=== PATIENT | male | born 1950 | race Caucasian/White ===

== ENCOUNTER 2016-11-11 16:56 | Inpatient (IN) | payer MEDICARE, OTHER ==
[2016-11-11] MEDS ORDERED: SODIUM CHLORIDE 0.9% 1,000 ML IV STA (17:35)
[2016-11-11] MEDS ORDERED: SODIUM CHLORIDE 0.9% 500 ML IV STA (17:35)
[2016-11-11 18:18] LABS: Basophils % (A) 0 %; CH 33.1; CHCM 34.7; Eosinophils # (A) 0.1 k/uL (0-0.7); Eosinophils % (A) 1 %; HCT 41.6 % (39.0-53.0); HDW 2.47; HGB 13.9 gm/dL (13.0-17.5); Luc % (Auto) 2; Lymphocytes # (A) 1.2 k/uL (1.0-4.8); Lymphocytes % (A) 22 %; MCH 32.1 pg (25.0-35.0); MCHC 33.5 g/dL (31.0-37.0); Mean Platelet Volume 7.2; Monocytes # (A) 0.4 k/uL (0-1.0); Monocytes % (A) 6 %; Neutrophils # (A) 3.8 k/uL (1.3-7.7); Neutrophils % (A) 68 %; RBC 4.34 m/uL (4.30-5.90); RDW 13.2 % (11.5-15.5); WBC 5.6 k/uL (3.8-10.6); WBC (Perox) 6.05
[2016-11-11 18:21] LABS: MCV 95.8 fL (80.0-100.0)
[2016-11-11 18:23] LABS: INR 1.1 (<1.2); Partial Thromboplastin Time 26.1 sec (22.0-30.0); Prothrombin Time 10.6 sec (9.0-12.0)
[2016-11-11 18:24] LABS: ALT 37 U/L (21-72); AST 26 U/L (17-59); Alkaline Phosphatase 76 U/L (38-126); Anion Gap 9 mmol/L; Blood Urea Nitrogen 22 mg/dL (9-20); Carbon Dioxide 22 mmol/L (22-30); Chloride 110 mmol/L (98-107); Glucose 103 mg/dL (74-99); Non-African American GFR(MDRD) >60 (>60 ml/min/1.73 sqM); Sodium 141 mmol/L (137-145); Total Bilirubin 0.5 mg/dL (0.2-1.3); Total Protein 6.5 g/dL (6.3-8.2)
[2016-11-11 18:40] LABS: Creatine Kinase 220 U/L (55-170)
[2016-11-11 18:53] LABS: Creatine Kinase MB 1.8 ng/mL (0.0-2.4); Troponin I <0.012 ng/mL (0.000-0.034)
--- NOTE | 2016-11-11 20:07 | ED ---
GI Bleed HPI - General Chief complaint: GI Bleed Stated complaint: Blood in Stool Time Seen by Provider: 11/11/16 17:16 Source: patient Mode of arrival: ambulatory Limitations: no limitations - History of Present Illness Initial comments: 66 years old male noticed a small amount of blood in his stool 2 days ago, it became more frequent today he moved his bowels and he noticed a large amount of blood ordiarrhea.Thisisafirst- timeeverhehadnobloodinhisstoolnoabdominalpainnofrequencyurgencydysurianodiarrhea orconstipationexceptforcoupleofloosestools.Heisnotonanybloodthinners.Deniesanyhe adachesnochestpainorshortnessofbreathnoabdominalpainnosymptomsofTIAo rCVA - Related Data Home Medications Medication Instructions Recorded Confirmed Aspirin 81 mg PO DAILY 09/17/15 11/11/16 Beta-Carotene [Beta Carotene] 25,000 unit PO DAILY 09/17/15 11/11/16 Esomeprazole Magnesium [NexIUM] 20 mg PO QAM 09/17/15 11/11/16 Acetaminophen Tab [Tylenol Tab] 500 - 1,000 mg PO Q6HR PRN 11/11/16 11/11/16 guaiFENesin [Mucinex] 600 mg PO Q12H PRN 11/11/16 11/11/16 Allergies Allergy/AdvReac Type Severity Reaction Status Date / Time No Known Allergies Allergy Verified 11/11/16 17:24 Review of Systems ROS Statement: Those systems with pertinent positive or pertinent negative responses have been documented in the HPI. ROS Other: All systems not noted in ROS Statement are negative. Past Medical History Past Medical History: GERD/Reflux Additional Past Medical History / Comment(s): Hernia History of Any Multi-Drug Resistant Organisms: None Reported Past Surgical History: Tonsillectomy Past Anesthesia/Blood Transfusion Reactions: No Reported Reaction Past Psychological History: Depression Smoking Status: Never smoker Past Alcohol Use History: Daily Past Drug Use History: None Reported - Past Family History Mother Family Medical History: Congestive Heart Failure (CHF) Father Family Medical History: Dementia General Exam - General Exam Comments Initial Comments: General: The patient is awake and alert, in no distress, and does not appear acutely ill. Skin: Skin is warm and dry and no rashes or lesions are noted. Eye: Pupils are equal, round and reactive to light, extra-ocular movements are intact; there is normal conjunctiva bilaterally. Ears, nose, mouth and throat: There are moist mucous membranes and no oral lesions. Neck: The neck is supple, there is no tenderness or JVD. Cardiovascular: There is a regular rate and rhythm. No murmur, rub or gallop is appreciated. Respiratory: To auscultation bilateral, no wheezing no rhonchi no distress respiratory calles noticed Gastrointestinal: Soft, non-distended, non-tender abdomen without masses or organomegaly noted. There is no rebound or guarding present. Bowel sounds are unremarkable. Rectal exam did show bright red blood rectal tone was fine there was no hemorrhoids Back: There is no tenderness to palpation in the midline. There is no obvious deformity. Musculoskeletal: Normal ROM, no tenderness, There is no pedal edema. There is no calf tenderness or swelling. No cords were appreciated. Neurological: CN II-XII intact, Cranial nerves III through XII are intact. There are no obvious motor or sensory deficits. Coordination appears grossly intact. Speech is normal. Psychiatric: Cooperative, appropriate mood & affect, normal judgment. Limitations: no limitations Course Vital Signs 11/11/16 11/11/16 11/11/16 17:08 19:06 19:53 Temperature 98.3 F 98.7 F Pulse Rate 124 H 85 100 Respiratory 22 20 18 Rate Blood Pressure 130/91 131/76 131/76 O2 Sat by Pulse 95 97 97 Oximetry - Reevaluation(s) Reevaluation #1: 11/11/16 19:54 Spoke with family doctor as well as Dr. Sheppard he be admitted to ICU. Serial H& H and a Dr. Beltran 11/11/16 20:09 Considering active GI bleed Dr. beltran recommended we admit him to ICU Medical Decision Making - Lab Data Result diagrams: 11/11/16 18:00 11/11/16 18:00 Lab Results 11/11/16 11/11/16 11/11/16 Range/Units 18:00 18:00 18:00 WBC 5.6 (3.8-10.6) k/uL RBC 4.34 (4.30-5.90) m/uL Hgb 13.9 (13.0-17.5) gm/dL Hct 41.6 (39.0-53.0) % MCV 95.8 D (80.0-100.0) fL MCH 32.1 (25.0-35.0) pg MCHC 33.5 (31.0-37.0) g/dL RDW 13.2 (11.5-15.5) % Plt Count 231 (150-450) k/uL Neutrophils % 68 % Lymphocytes % 22 % Monocytes % 6 % Eosinophils % 1 % Basophils % 0 % Neutrophils # 3.8 (1.3-7.7) k/uL Lymphocytes # 1.2 (1.0-4.8) k/uL Monocytes # 0.4 (0-1.0) k/uL Eosinophils # 0.1 (0-0.7) k/uL Basophils # 0.0 (0-0.2) k/uL PT (9.0-12.0) sec INR (<1.2) APTT (22.0-30.0) sec Sodium 141 (137-145) mmol/L Potassium 4.0 (3.5-5.1) mmol/L Chloride 110 H (98-107) mmol/L Carbon Dioxide 22 (22-30) mmol/L Anion Gap 9 mmol/L BUN 22 H (9-20) mg/dL Creatinine 0.91 (0.66-1.25) mg/dL Est GFR (MDRD) Af Amer >60 (>60 ml/min/1.73 sqM) Est GFR (MDRD) Non-Af >60 (>60 ml/min/1.73 sqM) Glucose 103 H (74-99) mg/dL Calcium 9.0 (8.4-10.2) mg/dL Total Bilirubin 0.5 (0.2-1.3) mg/dL AST 26 (17-59) U/L ALT 37 (21-72) U/L Alkaline Phosphatase 76 (38-126) U/L Total Creatine Kinase 220 H (55-170) U/L CK-MB (CK-2) 1.8 (0.0-2.4) ng/mL CK-MB (CK-2) Rel Index 0.8 Troponin I <0.012 (0.000-0.034) ng/mL Total Protein 6.5 (6.3-8.2) g/dL Albumin 3.9 (3.5-5.0) g/dL Stool Occult Blood (Negative) Blood Type Blood Type Recheck Antibody Screen Spec Expiration Date 11/11/16 11/11/16 11/11/16 Range/Units 18:00 18:00 18:00 WBC (3.8-10.6) k/uL RBC (4.30-5.90) m/uL Hgb (13.0-17.5) gm/dL Hct (39.0-53.0) % MCV (80.0-100.0) fL MCH (25.0-35.0) pg MCHC (31.0-37.0) g/dL RDW (11.5-15.5) % Plt Count (150-450) k/uL Neutrophils % % Lymphocytes % % Monocytes % % Eosinophils % % Basophils % % Neutrophils # (1.3-7.7) k/uL Lymphocytes # (1.0-4.8) k/uL Monocytes # (0-1.0) k/uL Eosinophils # (0-0.7) k/uL Basophils # (0-0.2) k/uL PT 10.6 (9.0-12.0) sec INR 1.1 (<1.2) APTT 26.1 (22.0-30.0) sec Sodium (137-145) mmol/L Potassium (3.5-5.1) mmol/L Chloride (98-107) mmol/L Carbon Dioxide (22-30) mmol/L Anion Gap mmol/L BUN (9-20) mg/dL Creatinine (0.66-1.25) mg/dL Est GFR (MDRD) Af Amer (>60 ml/min/1.73 sqM) Est GFR (MDRD) Non-Af (>60 ml/min/1.73 sqM) Glucose (74-99) mg/dL Calcium (8.4-10.2) mg/dL Total Bilirubin (0.2-1.3) mg/dL AST (17-59) U/L ALT (21-72) U/L Alkaline Phosphatase (38-126) U/L Total Creatine Kinase (55-170) U/L CK-MB (CK-2) (0.0-2.4) ng/mL CK-MB (CK-2) Rel Index Troponin I (0.000-0.034) ng/mL Total Protein (6.3-8.2) g/dL Albumin (3.5-5.0) g/dL Stool Occult Blood Positive (Negative) Blood Type O Negative Blood Type Recheck No Antibody Screen NEGATIVE Spec Expiration Date 11/14/2016 - 2300 Disposition Clinical Impression: GI bleed Disposition: ADMITTED IP TO THIS [facility] Condition: Good Referrals: Panfilo Truong MD [Primary Care Provider] - 1-2 days
[2016-11-11] MEDS ORDERED: MORPHINE SULFATE 2 MG/ML SYRINGE IV PRN (20:10)
[2016-11-11] MEDS ORDERED: NALOXONE 0.4 MG/ML 1 ML VIAL IV PRN (20:10)
[2016-11-11] MEDS ORDERED: ACETAMINOPHEN SUPPOSITORY 650 MG SUPP RECTAL PRN (20:10)
[2016-11-11] MEDS ORDERED: guaiFENesin 600 MG TABLET.ER PO PRN (20:23)
[2016-11-11] MEDS ORDERED: PANTOPRAZOLE 40 MG/10 ML VIAL IVP ONE (20:25)
[2016-11-11] MEDS ORDERED: ACETAMINOPHEN TAB 500 MG TAB PO STA (21:01)
[2016-11-11 21:31] LABS: Glucose,Whole Blood 100 mg/dL (75-99)
[2016-11-11 22:43] VITALS: BMI 24.3
[2016-11-12 04:23] LABS: CH 33.2; CHCM 34.4; HCT 38.7 % (39.0-53.0); HDW 2.45; HGB 12.9 gm/dL (13.0-17.5); MCH 32.3 pg (25.0-35.0); MCHC 33.3 g/dL (31.0-37.0); MCV 96.8 fL (80.0-100.0); Mean Platelet Volume 6.8; RDW 13.2 % (11.5-15.5); WBC 6.1 k/uL (3.8-10.6)
[2016-11-12 04:33] LABS: Anion Gap 9 mmol/L; Blood Urea Nitrogen 18 mg/dL (9-20); Calcium 8.8 mg/dL (8.4-10.2); Carbon Dioxide 24 mmol/L (22-30); Chloride 109 mmol/L (98-107); Glucose 100 mg/dL (74-99); Magnesium 1.8 mg/dL (1.6-2.3); Non-African American GFR(MDRD) >60 (>60 ml/min/1.73 sqM); Potassium 3.8 mmol/L (3.5-5.1); Sodium 142 mmol/L (137-145)
[2016-11-12] MEDS ORDERED: Magnesium Replacement Protocol 1 EACH MISC MISCELLANE PRN (05:48)
[2016-11-12] MEDS ORDERED: Potassium Replacement Protocol 1 EACH MISC MISCELLANE PRN (05:48)
[2016-11-12] MEDS: POTASSIUM CHLORIDE ER 20 MEQ TAB.ER PO SCH ×2 (06:40→08:15)
[2016-11-12] MEDS: MAGNESIUM SULFATE-D5W PMX 1 GM in DEXTROSE/WATER 1 100ML.BAG IVPB SCH ×2 (06:40→08:14)
[2016-11-12] MEDS: PANTOPRAZOLE 40 MG TABLET PO SCH (08:17)
[2016-11-12] MEDS ORDERED: BETA CAROTENE 25000 UNIT PO SCH (09:00)
[2016-11-12] MEDS: D5-0.9% NACL WITH KCL 20 MEQ/L 1,000 ML IV SCH ×2 (10:28→18:42)
[2016-11-12 10:47] LABS: CH 31.9; CHCM 34.1; HDW 3.15; HGB 13.1 gm/dL (13.0-17.5); MCH 33.4 pg (25.0-35.0); MCHC 35.5 g/dL (31.0-37.0); MCV 94.1 fL (80.0-100.0); Mean Platelet Volume 7.5; RBC 3.94 m/uL (4.30-5.90); RDW 12.9 % (11.5-15.5); WBC 5.3 k/uL (3.8-10.6)
[2016-11-12] MEDS ORDERED: PEG 3350-NA SULF,BICARB,CL/KCL 4,000 ML BOTTLE PO ONE (13:00)
--- NOTE | 2016-11-12 13:06 | P.CNPUL ---
History of Present Illness Consult date: 11/12/16 Chief complaint: GI bleeding History of present illness: 66 year-old male patient who presented to his primary care physician because of bright red blood per rectum. The patient was having small amount of bloody stool over the past few days. Based on this, the patient presented to his primary care physician. A office sigmoidoscopy was done and the patient was found to have large amount of bright red blood per rectum. The patient was referred to the emergency department. He remained hemodynamically stable. There is no significant drop in his hemoglobin. Did not require any packed RBC transfusion. He has never had a colonoscopy before. No intake of any anticoagulants. He takes baby aspirin. No chronic liver disease. No alcoholism. No peptic ulcer disease. No hematemesis. No abdominal pain or distention. No new onset constipation. No other complaints otherwise. Review of Systems Constitutional: Denies chills, Denies fever Eyes: denies blurred vision, denies bulging eye, denies decreased vision Ears: deny: decreased hearing, ear discharge, earache Ears, nose, mouth and throat: Denies headache, Denies sore throat Cardiovascular: Denies chest pain, Denies shortness of breath Gastrointestinal: Reports BRBPR Genitourinary: Reports as per HPI Musculoskeletal: Denies myalgias Musculoskeletal: absent: ankle pain, ankle stiffness, ankle swelling Integumentary: Denies pruritus, Denies rash Neurological: Denies numbness, Denies weakness Psychiatric: Denies anxiety, Denies depression Past Medical History Past Medical History: GERD/Reflux Additional Past Medical History / Comment(s): Hernia History of Any Multi-Drug Resistant Organisms: None Reported Past Surgical History: Tonsillectomy Past Anesthesia/Blood Transfusion Reactions: No Reported Reaction Smoking Status: Never smoker Additional Past Alcohol Use History / Comment(s): 1 drink every other day Past Drug Use History: None Reported - Past Family History Mother Family Medical History: Congestive Heart Failure (CHF) Father Family Medical History: Dementia Medications and Allergies Home Medications Medication Instructions Recorded Confirmed Type Aspirin 81 mg PO DAILY 09/17/15 11/11/16 History Beta-Carotene [Beta Carotene] 25,000 unit PO DAILY 09/17/15 11/11/16 History Esomeprazole Magnesium [NexIUM] 20 mg PO QAM 09/17/15 11/11/16 History Acetaminophen Tab [Tylenol Tab] 500 - 1,000 mg PO Q6HR PRN 11/11/16 11/11/16 History guaiFENesin [Mucinex] 600 mg PO Q12H PRN 11/11/16 11/11/16 History Allergies Allergy/AdvReac Type Severity Reaction Status Date / Time No Known Allergies Allergy Verified 11/11/16 17:24 Physical Exam Vitals: Vital Signs Temp Pulse Pulse Resp BP BP Pulse Ox 11/12/16 10:00 74 19 127/74 96 11/12/16 09:00 68 12 140/77 96 11/12/16 08:00 97.9 F 74 18 132/72 95 11/12/16 07:00 71 13 120/78 95 11/12/16 06:50 81 19 120/78 93 L 11/12/16 06:40 81 12 120/78 97 11/12/16 06:30 62 14 120/78 94 L 11/12/16 06:20 67 17 120/78 95 11/12/16 06:10 75 15 120/68 94 L 11/12/16 06:00 59 L 11 L 120/68 97 11/12/16 05:50 73 17 120/68 95 11/12/16 05:40 72 16 120/68 94 L 11/12/16 05:30 70 17 120/68 94 L 11/12/16 05:20 62 16 120/68 95 11/12/16 05:10 59 L 15 132/82 94 L 11/12/16 05:00 64 15 132/82 94 L 11/12/16 04:50 65 16 132/82 95 11/12/16 04:40 69 14 132/82 95 11/12/16 04:30 132/82 11/12/16 04:20 77 15 132/82 95 11/12/16 04:10 98.2 F 74 23 105/69 96 11/12/16 04:00 75 17 105/69 11/12/16 03:50 90 60 H 105/69 94 L 11/12/16 03:40 62 15 105/69 94 L 11/12/16 03:30 62 15 105/69 95 11/12/16 03:20 64 17 105/69 94 L 11/12/16 03:10 68 16 104/66 94 L 11/12/16 03:00 69 12 104/66 95 11/12/16 02:50 90 20 104/66 96 11/12/16 02:40 70 17 104/66 92 L 11/12/16 02:30 75 23 104/66 93 L 11/12/16 02:20 74 18 104/66 94 L 11/12/16 02:10 70 16 112/73 93 L 11/12/16 02:00 73 16 112/73 94 L 11/12/16 01:50 65 16 112/73 95 11/12/16 01:40 74 14 112/73 95 11/12/16 01:30 72 17 112/73 94 L 11/12/16 01:20 67 18 112/73 95 11/12/16 01:10 62 15 110/67 95 11/12/16 01:00 64 16 110/67 94 L 11/12/16 00:50 68 11 L 110/67 92 L 11/12/16 00:40 110/67 11/12/16 00:30 81 15 110/67 96 11/12/16 00:20 69 16 110/67 96 11/12/16 00:10 68 16 119/74 94 L 11/12/16 00:00 98.2 F 100 75 20 119/74 97 11/11/16 23:50 64 15 119/74 96 11/11/16 23:40 71 15 119/74 96 11/11/16 23:30 65 15 119/74 96 11/11/16 23:20 65 16 119/74 94 L 11/11/16 23:12 68 15 119/74 94 L 11/11/16 23:10 70 16 119/74 94 L 11/11/16 23:00 88 16 119/74 94 L 11/11/16 22:50 78 11 L 119/74 95 11/11/16 22:40 86 24 119/74 94 L 11/11/16 22:30 78 17 119/74 95 11/11/16 22:21 80 129/78 96 11/11/16 22:15 75 16 11/11/16 22:10 77 17 129/78 94 L 11/11/16 22:00 81 11 L 145/80 95 11/11/16 21:54 98.0 F 75 14 119/74 95 11/11/16 21:50 76 11 L 145/80 93 L 11/11/16 21:40 82 10 L 145/80 95 11/11/16 21:30 100.1 F H 90 18 138/86 95 11/11/16 21:00 100.1 F H 90 18 138/86 95 11/11/16 19:53 100 18 131/76 97 11/11/16 19:06 98.7 F 85 20 131/76 97 11/11/16 17:08 98.3 F 124 H 22 130/91 95 Intake and Output 11/11/16 11/12/16 11/12/16 22:59 06:59 14:59 Intake Total 100 800 500 Output Total 103 Balance 100 697 500 Intake: IV 100 800 500 Sodium Chloride 0.9% 1, 100 800 500 000 ml @ 100 mls/hr IV . Q10H STA Rx#:[id number] Output: Urine 100 Stool 3 Other: Voiding Method Toilet Toilet Toilet # Voids 1 1 # Bowel Movements 1 Weight 93.3 kg 93.3 kg The patient appeared well nourished and normally developed. Vital signs as documented. Head exam is unremarkable. No scleral icterus or corneal arcus noted. Neck is without jugular venous distension, thyromegaly, or carotid bruits. Carotid upstrokes are brisk bilaterally. Lungs are clear to auscultation and percussion. Cardiac exam reveals the PMI to be normally sized and situated. Rhythm is regular. First and second heart sounds normal. No murmurs, rubs or gallops. Abdominal exam reveals normal bowel sounds, no masses , no organomegaly and no aortic enlargement. Extremities are nonedematous and both femoral and pedal pulses are normal. Results - Laboratory Findings CBC and BMP: 11/12/16 10:31 11/12/16 04:12 PT/INR, D-dimer PT 10.6 sec (9.0-12.0) 11/11/16 18:00 INR 1.1 (<1.2) 11/11/16 18:00 Abnormal lab findings: Abnormal Labs 11/11/16 11/11/16 11/11/16 18:00 18:00 21:30 RBC Hgb Hct Chloride 110 H BUN 22 H Glucose 103 H POC Glucose (mg/dL) 100 H Total Creatine Kinase 220 H 11/12/16 11/12/16 11/12/16 04:12 04:12 10:31 RBC 4.00 L 3.94 L Hgb 12.9 L Hct 38.7 L 37.0 L Chloride 109 H BUN Glucose 100 H POC Glucose (mg/dL) Total Creatine Kinase Assessment and Plan Plan: Assessment 1 bright red blood per rectum, rule out lower GI bleeding. Hemodynamically stable. No significant drop in hemoglobin. Plan Allow clear liquid diet. Monitor hemoglobin. TO be evaluated by Dr. Sheppard. Colonoscopy hopefully within the next 24-48 hours. Hemodynamically stable. Hemoglobin is stable. The patient can be transferred to medical floorContinue IV fluids. The patient is on D5 normal saline at the rate of 40 mL an hour. IV Protonix. We'll follow.
--- NOTE | 2016-11-12 13:44 | HP ---
CHIEF COMPLAINT: GI bleeding. This is a 66-year-old male who came to my office today with acute GI bleed. He said for 2 days had a little bid of blood. This morning he woke up and had a fair amount of rectal bleeding with a little bit of loose stool. He was seen in the office and evaluated. His vital signs were quite stable except for rapid heart beat of 100 and appeared pale. There was a period of time that I did a rigid sigmoid in the office and he had profuse bleeding from the rectum with large clots. At that time, he was sent directly to the Emergency Room for acute evaluation for CBC. In the meantime, I called Dr. Sheppard on the phone. He was notified of the patient to be admitted and he has been consulted and set up for evaluation of his rectal bleed via colonoscopy in the morning. At this period of time, he has a past medical history of no known allergies. His medications have been: 1. 81 mg of aspirin at home. 2. Beta Carotene 25,000 units daily. 3. Nexium 20 mg a day. 4. Tylenol 500 mg every 6 hours for arthritis. 5. Mucinex for productive cough. His family history is that of mother with congestive heart failure, father had progressive dementia. His past medical history is that of GERD, reflux. His past surgical history is hernia repair and he has been in the hospital, status post infection in the past. His past surgical history is that of tonsillectomy. He has not had any blood products. He also has had a history of depression but has not been on medication for a long period of time. His social history is he drinks alcohol on a daily basis. He drinks beer. His illicit drug use is that of marijuana. His smoking status is that he has never been a smoker. He also lives with his and he is retired. REVIEW OF SYSTEMS: CARDIOPULMONARY: No shortness of breath, chest pain, orthopnea or paroxysmal nocturnal dyspnea. RESPIRATORY: He has occasional dry cough. He has had no history of pneumonia. History of chronic bronchitis. GI: He has had melena and some hematochezia today and over the last 2 days, much more today. No abdominal pain with this, no constipation, no diarrhea. He has not been on any antibiotics. : He has had a fair amount of urination over the last 24 to 48 hours but nothing unusual. He has no problems with his prostate by history. NEUROMUSCULAR: He has some degenerative disc disease in the lower back. He occasionally takes a Motrin and Aleve. He used to take glucosamine at one time but talked to be me about it several years ago. I told him to stop due to the possibility of progressive kidney disease. SKIN/INTEGUMENT: He has had no problems with his skin. ENDOCRINE: He has never had endocrine problem. PSYCHIATRIC: He has had some evidence of depression but nothing severe. No anxiety. He had a progressive history in his family of dementia. LAB WORK: His white count is 5.6, his hemoglobin is 13.9 upon admission and his platelet count 233,000. PT and INR were within normal limits. Sodium was 144, potassium chloride 110, creatinine of 0.9 with a BUN of 22, glucose is 103. Liver function tests were normal. CPK was done along with troponin, positive stool. PHYSICAL EXAMINATION: Alert, white male that does appear pale. His temperature at this time is 98. His heart rate is 100 and respiratory rate is 18. Blood pressure at this time is 140/80, O2 sat is 93 on room air. EYES: Pupils are equal, round and reactive to light and accommodation, conjunctival is pale. The rest of the ENT just shows a dry mouth. Neck is supple, midline trachea, no carotid bruits. CHEST: Essentially clear to auscultation. HEART: Sinus rhythm, negative S3, negative S4, S2 split. ABDOMEN: Soft, nontender, no organomegaly. No probable masses, he is thin. 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 The bleeding did stop before patient was transferred to the hospital from my office. SKIN: Changes of stasis dermatitis in the lower legs with palpable lower extremity process. NEUROLOGICAL: When he stood up, he was dizzy, was able to walk without assistance. Cranial nerve 2 through 12 are grossly intact. He has good arm strength bilaterally with deep tendon reflexes +2 bilateral and equal upper and lower extremities. EKG was completed while first admitted to the hospital. Showed some sinus tachycardia and he has a left vesicular block; otherwise, within normal limits. ASSESSMENT: 1. Acute gastrointestinal bleed of questionable etiology, probable anemia. 2. Vertigo. 3. Depression which is now stable. PLAN: Patient has had multiple colonoscopies, many of which he has canceled and has not followed through accordingly. He is in the hospital today. I did call Dr. Sheppard and talked to him personally about the case. He was doing surgeries over at [facility] and he was called. At this time, through the ER, he was admitted to ICU with acute 4 hour hemoglobins and stay close and intact for his blood loss. The plan is to do a colonoscopy in the morning, intensive care physician is mandatory in ICU, Dr. Navas was consulted. No need for immediate consult. Urgent consult was put in. At this point, he is stable. He will be watched through the night. His prognosis is guarded. KENY
[2016-11-12 13:49] LABS: CH 33.1; CHCM 34.1; HCT 41.4 % (39.0-53.0); HDW 2.43; HGB 13.6 gm/dL (13.0-17.5); MCH 32.1 pg (25.0-35.0); MCV 97.4 fL (80.0-100.0); RBC 4.25 m/uL (4.30-5.90); RDW 13.2 % (11.5-15.5); WBC 6.2 k/uL (3.8-10.6)
[2016-11-12 17:31] LABS: CH 32.9; CHCM 33.5; HCT 39.3 % (39.0-53.0); HDW 2.45; MCH 32.5 pg (25.0-35.0); MCV 98.6 fL (80.0-100.0); Mean Platelet Volume 7.1; RBC 3.99 m/uL (4.30-5.90); RDW 13.4 % (11.5-15.5); WBC 6.6 k/uL (3.8-10.6)
--- NOTE | 2016-11-12 21:07 | PN ---
DATE OF SERVICE: 11/12/2016 [age]-old white male came to my office after 2 days of rectal bleeding. It was minimal, and then it progressively worsened. While he was in the office, his rectosigmoid exam was completed which showed dark red blood and copious clot formation. The patient was then sent and admitted to the hospital via the emergency room. He has had no past medical GI history, as per his history and physical. His medications are: 1. Aspirin 81 daily. 2. Beta carotene 25,000 units daily. 3. Nexium 20 mg daily. 4. Tylenol 500 mg every 6 hours p.r.n. arthritis pain. 5. Mucinex 600 every 12 hours for non-specific cough. HE HAS NO KNOWN ALLERGIES. His past medical history is just GERD. His surgical history includes hernia repair and tonsillectomy. PSYCHOLOGICAL HISTORY: He has had some depression in the past. SOCIAL HISTORY: Non-smoker, but he has smoked marijuana. Daily use of alcohol but no other illicit drugs. FAMILY HISTORY: Mother with congestive heart failure. Father with progressive dementia. REVIEW OF SYSTEMS: CARDIOPULMONARY: No shortness of breath. No chest pain or orthopnea. No paroxysmal nocturnal dyspnea. GI: He has melena and some hematochezia. No emesis. No nausea. No vomiting. MUSCULOSKELETAL: Just arthritis throughout the knees and in his hands. PHYSICAL EXAMINATION: This morning he is alert and oriented to person, place and thing. He still has had some rectal bleeding through the night. Blood pressure 140/77, hear rate now in the 70s, respiratory rate 16. Temperature is 97.9. EYES: Pupils are equal, round and reactive to light and accommodation but he still appears pale. ENT is within normal limits. Neck is supple with a midline trachea. CHEST: Essentially clear to auscultation. HEART: Sinus rhythm with no murmur. No S3. Negative S4. ABDOMEN: Soft, non-tender. No palpable masses. No organomegaly. LOWER EXTREMITIES: Good palpable pulses. Arthritis in the knee is visible. Some stasis dermatitis changes in the lower legs. Range of motion of the hips within normal limits. LUMBAR SPINE: Range of motion appears to be within normal limits. There is slight kyphosis. ENDOCRINE: Not addressed. PSYCHIATRIC: No depression. Minimal amount of anxiety. LAB THIS MORNING: Hemoglobin 12.9, WBC 6.1, platelets still 220,000. Chem-17 is within normal limits. ASSESSMENT: 1. Acute gastrointestinal bleed. 2. History of some osteoarthritis. 3. Depression, which has been stable. 4. Gastroesophageal reflux. PLAN AT THIS TIME: Dr. Sheppard has been consulted. Will wait for his lead. He is in ICU and time spent with him was less than 35 minutes. MTDD
[2016-11-12 22:35] LABS: CH 32.3; CHCM 33.8; HCT 36.5 % (39.0-53.0); HDW 2.49; HGB 12.5 gm/dL (13.0-17.5); MCHC 34.4 g/dL (31.0-37.0); MCV 95.8 fL (80.0-100.0); Mean Platelet Volume 6.3; RDW 12.6 % (11.5-15.5); WBC 5.5 k/uL (3.8-10.6)
--- NOTE | 2016-11-12 22:41 | P.GSCN ---
History of Present Illness Consult date: 11/12/16 Reason for Consult: Rectal bleeding History of present illness: Patient came to the hospital with bright red blood per rectum. Numerous episodes. Bleeding has slowed down. No history of similar events. No prior upper or lower endoscopy. Denies abdominal pain. No melena. No syncopal episodes. Hemoglobin has been stable. Review of Systems The patient denies any acute changes in his vision or hearing, no dysphagia or odynophagia, no chest pain or shortness of breath, no dysuria or hematuria, no headache, no runny nose, no melena, no unexplained weight loss Past Medical History Past Medical History: GERD/Reflux Additional Past Medical History / Comment(s): Hernia History of Any Multi-Drug Resistant Organisms: None Reported Past Surgical History: Tonsillectomy Past Anesthesia/Blood Transfusion Reactions: No Reported Reaction Smoking Status: Never smoker Additional Past Alcohol Use History / Comment(s): 1 drink every other day Past Drug Use History: None Reported - Past Family History Mother Family Medical History: Congestive Heart Failure (CHF) Father Family Medical History: Dementia Medications and Allergies Home Medications Medication Instructions Recorded Confirmed Type Aspirin 81 mg PO DAILY 09/17/15 11/11/16 History Beta-Carotene [Beta Carotene] 25,000 unit PO DAILY 09/17/15 11/11/16 History Esomeprazole Magnesium [NexIUM] 20 mg PO QAM 09/17/15 11/11/16 History Acetaminophen Tab [Tylenol Tab] 500 - 1,000 mg PO Q6HR PRN 11/11/16 11/11/16 History guaiFENesin [Mucinex] 600 mg PO Q12H PRN 11/11/16 11/11/16 History Allergies Allergy/AdvReac Type Severity Reaction Status Date / Time No Known Allergies Allergy Verified 11/11/16 17:24 Surgical - Exam Vital Signs Temp Pulse Resp BP Pulse Ox 98.3 F 124 H 22 130/91 95 11/11/16 17:08 11/11/16 17:08 11/11/16 17:08 11/11/16 17:08 11/11/16 17:08 Physical exam: General: Well-developed, well-nourished HEENT: Normocephalic, sclerae nonicteric Abdomen: Nontender, nondistended Extremities: No edema Neuro: Alert and oriented Results - Labs 11/12/16 17:21 11/12/16 04:12 Abnormal Lab Results - Last 24 Hours (Table) 11/12/16 11/12/16 11/12/16 Range/Units 04:12 04:12 10:31 RBC 4.00 L 3.94 L (4.30-5.90) m/uL Hgb 12.9 L (13.0-17.5) gm/dL Hct 38.7 L 37.0 L (39.0-53.0) % Chloride 109 H (98-107) mmol/L Glucose 100 H (74-99) mg/dL 11/12/16 11/12/16 Range/Units 13:30 17:21 RBC 4.25 L 3.99 L (4.30-5.90) m/uL Hgb (13.0-17.5) gm/dL Hct (39.0-53.0) % Chloride (98-107) mmol/L Glucose (74-99) mg/dL Diabetes panel 11/12/16 Range/Units 04:12 Sodium 142 (137-145) mmol/L Potassium 3.8 (3.5-5.1) mmol/L Chloride 109 H (98-107) mmol/L Carbon Dioxide 24 (22-30) mmol/L BUN 18 (9-20) mg/dL Creatinine 0.90 (0.66-1.25) mg/dL Glucose 100 H (74-99) mg/dL Calcium 8.8 (8.4-10.2) mg/dL Calcium panel 11/12/16 Range/Units 04:12 Calcium 8.8 (8.4-10.2) mg/dL Phosphorus 3.0 (2.5-4.5) mg/dL Pituitary panel 11/12/16 Range/Units 04:12 Sodium 142 (137-145) mmol/L Potassium 3.8 (3.5-5.1) mmol/L Chloride 109 H (98-107) mmol/L Carbon Dioxide 24 (22-30) mmol/L BUN 18 (9-20) mg/dL Creatinine 0.90 (0.66-1.25) mg/dL Glucose 100 H (74-99) mg/dL Calcium 8.8 (8.4-10.2) mg/dL Adrenal panel 11/12/16 Range/Units 04:12 Sodium 142 (137-145) mmol/L Potassium 3.8 (3.5-5.1) mmol/L Chloride 109 H (98-107) mmol/L Carbon Dioxide 24 (22-30) mmol/L BUN 18 (9-20) mg/dL Creatinine 0.90 (0.66-1.25) mg/dL Glucose 100 H (74-99) mg/dL Calcium 8.8 (8.4-10.2) mg/dL Assessment and Plan (1) GI bleed Narrative/Plan: We'll proceed with upper and lower endoscopy tomorrow. Risks of bleeding and perforation discussed. Status: Acute
[2016-11-13 04:30] LABS: CHCM 34.3; HCT 33.5 % (39.0-53.0); HDW 2.45; HGB 11.1 gm/dL (13.0-17.5); MCHC 33.1 g/dL (31.0-37.0); MCV 96.6 fL (80.0-100.0); RBC 3.47 m/uL (4.30-5.90); RDW 13.1 % (11.5-15.5); WBC 4.8 k/uL (3.8-10.6)
[2016-11-13 04:42] LABS: Anion Gap 5 mmol/L; Blood Urea Nitrogen 9 mg/dL (9-20); Calcium 8.1 mg/dL (8.4-10.2); Carbon Dioxide 26 mmol/L (22-30); Chloride 111 mmol/L (98-107); Glucose 126 mg/dL (74-99); Magnesium 2.1 mg/dL (1.6-2.3); Non-African American GFR(MDRD) >60 (>60 ml/min/1.73 sqM); Potassium 3.8 mmol/L (3.5-5.1); Sodium 142 mmol/L (137-145)
[2016-11-13] MEDS ORDERED: Potassium Replacement Protocol 1 EACH MISC MISCELLANE PRN (07:00)
[2016-11-13] MEDS: D5-0.9% NACL WITH KCL 20 MEQ/L 1,000 ML IV SCH ×4 (07:23→22:17)
[2016-11-13] MEDS: PANTOPRAZOLE 40 MG TABLET PO SCH (07:25)
[2016-11-13] MEDS: POTASSIUM CHLORIDE 10 MEQ, LIDOCAINE 2% INJ 10 MG in SODIUM CHLORIDE 0.9% 100 ML IV SCH ×2 (07:37→08:45)
[2016-11-13 10:41] LABS: CH 32.1; CHCM 33.9; HCT 37.1 % (39.0-53.0); HDW 2.51; HGB 12.7 gm/dL (13.0-17.5); MCH 32.6 pg (25.0-35.0); MCHC 34.3 g/dL (31.0-37.0); Mean Platelet Volume 6.5; RBC 3.91 m/uL (4.30-5.90); RDW 12.7 % (11.5-15.5); WBC 5.2 k/uL (3.8-10.6)
--- NOTE | 2016-11-13 13:08 | PN ---
DATE OF SERVICE: 11/13/2016 A 66-year-old white male who presented to my office with severe rectal bleeding , his sigmoidoscope rigid completed greater than 10 cm showed profuse blood and clots, was placed in the hospital accordingly and put on projective protocol with hemoglobins every 6 hours. Patient feels a little bit weaker today, has had some rectal bleeding. He is set up for EGD and colonoscopy today with Dr. Sheppard. He has a past medical history of GE reflux, some depression, which has been stable, GERD. FAMILY HISTORY: Mother with congestive heart failure, father had progressive dementia. His medications at this time was 81 mg of aspirin, he was on beta carotene 25, 000 units daily, Nexium 20 daily, Tylenol 500 daily. He uses Mucinex p.r.n. At this point today, in hospital he is on a magnesium and potassium protocol and his potassium is 3.8, magnesium is up to 2.1. Today his hemoglobin is down to 11.1, initially it was at 13.1. REVIEW OF SYSTEMS: CARDIOPULMONARY: No shortness of breath, no chest pain. He has had some cough. He has had some GE reflux, less than 2 standard and he had some rectal bleeding , it has been more bright red. URINARY: Has been normal. NEUROMUSCULAR: He just have pain in his knees from his regular arthritis and in his hands. Today, his vital signs show a blood pressure of 109/67, heart rate is strong and in the 80s, temperature 97.8. EYES: Pupils are equal, round and react to light and accommodation. ENT showed tympanic membranes and appear to be negative. Neck is supple with midline trachea. CHEST: Essentially clear to auscultation. HEART: Sinus rhythm with no murmur. ABDOMEN: Soft, nontender, no organomegaly, no masses. LOWER EXTREMITY: Good palpable lower extremity pulses, arthritis of the knees and the hands are seen. ASSESSMENT: 1. Acute gastrointestinal bleed, history of gastroesophageal reflux disease. PLAN: Continue to follow hemoglobins carefully every [address] Sheppard to do an EGD and colonoscopy today. His prognosis is guarded. Please refer to my orders. MTDD
--- NOTE | 2016-11-13 15:06 | P.PN ---
Subjective 66 year-old male patient who presented to his primary care physician because of bright red blood per rectum. The patient was having small amount of bloody stool over the past few days. Based on this, the patient presented to his primary care physician. A office sigmoidoscopy was done and the patient was found to have large amount of bright red blood per rectum. The patient was referred to the emergency department. He remained hemodynamically stable. There is no significant drop in his hemoglobin. Did not require any packed RBC transfusion. He has never had a colonoscopy before. No intake of any anticoagulants. He takes baby aspirin. No chronic liver disease. No alcoholism. No peptic ulcer disease. No hematemesis. No abdominal pain or distention. No new onset constipation. No other complaints otherwise. On 11/13/2016 the patient is still awaiting colonoscopy and EGD. This will be done today. He is nothing by mouth. PREP was already done. Hemoglobin is stable. No further episodes of bleeding since yesterday. Hemodynamically stable. Has no specific complaints. He would likely leave the ICU after the colonoscopy and EGD. Objective - Vital Signs Vital signs: Vital Signs Temp 98.8 F 11/13/16 07:33 Pulse 71 11/13/16 00:00 Resp 14 11/13/16 07:33 BP 121/76 11/13/16 07:33 Pulse Ox 94 L 11/13/16 07:33 Intake & Output 11/12/16 11/13/16 11/13/16 18:59 06:59 18:59 Intake Total 1050 1600 1200 Output Total 2 Balance 1050 1598 1200 Intake: IV 500 400 Sodium Chloride 0.9% 1, 500 400 000 ml @ 100 mls/hr IV . Q10H STA Rx#:[id number] Intake, IV Titration 550 1200 1200 Amount D5-0.9% NaCl with KCl 20 450 1200 1000 Meq/l 1,000 ml @ 150 mls/ hr IV .Q6H40M DARYN Rx#: [id number] Magnesium Sulfate-D5w Pmx 100 1 gm In Dextrose/Water 1 100ml.bag @ 100 mls/hr IVPB Q1H DARYN Rx#: [id number] Potassium Chloride 10 meq 200 Lidocaine 2% Inj 10 mg In Sodium Chloride 0.9% 100 ml @ 100 mls/hr IV Q1HR DARYN Rx#:[id number] Output: Stool 2 Other: Voiding Method Toilet Toilet Toilet # Voids 3 8 3 # Bowel Movements 4 8 2 - Exam The patient appeared well nourished and normally developed. Vital signs as documented. Head exam is unremarkable. No scleral icterus or corneal arcus noted. Neck is without jugular venous distension, thyromegaly, or carotid bruits. Carotid upstrokes are brisk bilaterally. Lungs are clear to auscultation and percussion. Cardiac exam reveals the PMI to be normally sized and situated. Rhythm is regular. First and second heart sounds normal. No murmurs, rubs or gallops. Abdominal exam reveals normal bowel sounds, no masses , no organomegaly and no aortic enlargement. Extremities are nonedematous and both femoral and pedal pulses are normal. - Labs CBC & Chem 7: 11/13/16 10:34 11/13/16 04:20 Labs: Abnormal Lab Results - Last 24 Hours (Table) 11/12/16 11/12/16 11/13/16 Range/Units 17:21 22:25 04:20 RBC 3.99 L 3.80 L 3.47 L (4.30-5.90) m/uL Hgb 12.5 L 11.1 L (13.0-17.5) gm/dL Hct 36.5 L 33.5 L (39.0-53.0) % Chloride (98-107) mmol/L Glucose (74-99) mg/dL Calcium (8.4-10.2) mg/dL 11/13/16 11/13/16 Range/Units 04:20 10:34 RBC 3.91 L (4.30-5.90) m/uL Hgb 12.7 L (13.0-17.5) gm/dL Hct 37.1 L (39.0-53.0) % Chloride 111 H (98-107) mmol/L Glucose 126 H (74-99) mg/dL Calcium 8.1 L (8.4-10.2) mg/dL Assessment and Plan Plan: Assessment 1 bright red blood per rectum, rule out lower GI bleeding. Hemodynamically stable. No significant drop in hemoglobin. The patient has undergone his bowel prep and he is awaiting his colonoscopy and EGD to be done this afternoon. His most recent hemoglobin is at 12.7. Plan EGD and colonoscopy today. The patient can be transferred to medical floor if the results are essentially benign.
[2016-11-13] MEDS ORDERED: SODIUM CHLORIDE 0.9% 1,000 ML IV ONE (15:12)
[2016-11-13] MEDS ORDERED: PROPOFOL 10 MG/ML 20 ML VIAL IV ONE (15:14)
[2016-11-13] MEDS ORDERED: LIDOCAINE 1% INJ 10MG/ML (20 ML MDV) ONE (15:14)
[2016-11-13 15:15] LABS: CH 32.9; CHCM 33.6; HCT 39.6 % (39.0-53.0); HDW 2.46; HGB 12.9 gm/dL (13.0-17.5); MCHC 32.6 g/dL (31.0-37.0); MCV 98.1 fL (80.0-100.0); Mean Platelet Volume 7.4; RBC 4.03 m/uL (4.30-5.90); RDW 13.4 % (11.5-15.5); WBC 6.4 k/uL (3.8-10.6)
--- NOTE | 2016-11-13 15:57 | P.PCN ---
Date of Procedure: 11/13/16 Preoperative Diagnosis: Postoperative Diagnosis: Procedure(s) Performed: PREOPERATIVE DIAGNOSIS: GI bleeding POSTOPERATIVE DIAGNOSIS: Gastritis, small hiatal hernia, mild distal esophagitis , diverticulosis PROCEDURE: 1. EGD with biopsy 2. Colonoscopy ANESTHESIA: MAC SURGEON: Gerald Sheppard M.D. SPECIMENS: Antrum ENDOSCOPIC PROCEDURE: The patient was on the endoscopy table in the left decubitus position. The Olympus gastroscope was inserted into the oropharynx and passed under direct visualization to the region of the third portion of the duodenum. From that point the scope was slowly withdrawn inspecting all surfaces carefully. There were no neoplastic inflammatory or polypoid lesions throughout the duodenum. The pylorus was widely patent. The stomach was carefully inspected. There was mild gastritis present. A biopsy of the antrum took place to rule out H. pylori. Retroflexion revealed a small sliding hiatal hernia. The esophagus was then carefully examined. There was mild inflammatory changes right at the GE junction. The remainder of the esophagus appear normal. The patient was kept on the endoscopy table in the left decubitus position. The Olympus colonoscope was inserted into the anus and passed under direct visualization to the base of the cecum. The appendiceal orifice was visualized. From that point the scope was slowly withdrawn inspecting all surfaces carefully. There were no neoplastic inflammatory or polypoid lesions throughout the cecum, ascending, transverse, descending, sigmoid and rectum. There was diverticulosis seen scattered throughout the colon. It was evidence of some old blood present in the left colon from about 20-50 cm. No active bleeding was identified. There was bile proximally in the colon. I do suspect the likely source of bleeding is in the descending and sigmoid colon. Digital rectal examination was normal. The patient was taken to the recovery room in stable condition per anesthesia guidelines. RECOMMENDATIONS: Resume diet. Repeat CBC tomorrow. Possible discharge tomorrow. If the patient has evidence of rebleeding would consider left colectomy. Implants: Indications for Procedure: Operative Findings: Description of Procedure:
[2016-11-14] MEDS: D5-0.9% NACL WITH KCL 20 MEQ/L 1,000 ML IV SCH ×3 (06:59→18:00)
[2016-11-14 07:11] LABS: CH 32.9; CHCM 34.1; HCT 33.5 % (39.0-53.0); HDW 2.47; HGB 11.6 gm/dL (13.0-17.5); MCH 33.4 pg (25.0-35.0); MCHC 34.5 g/dL (31.0-37.0); MCV 96.8 fL (80.0-100.0); Mean Platelet Volume 7.3; RBC 3.46 m/uL (4.30-5.90); WBC 5.3 k/uL (3.8-10.6)
[2016-11-14 07:35] LABS: Anion Gap 7 mmol/L; Blood Urea Nitrogen 6 mg/dL (9-20); Calcium 8.6 mg/dL (8.4-10.2); Carbon Dioxide 24 mmol/L (22-30); Chloride 111 mmol/L (98-107); Glucose 113 mg/dL (74-99); Non-African American GFR(MDRD) >60 (>60 ml/min/1.73 sqM); Potassium 4.2 mmol/L (3.5-5.1); Sodium 142 mmol/L (137-145)
[2016-11-14] MEDS: PANTOPRAZOLE 40 MG TABLET PO SCH (08:04)
--- NOTE | 2016-11-14 18:06 | P.PN ---
Subjective Principal diagnosis: GI bleed Patient continued to have small volume bloody stools. Since his colonoscopy yesterday he believes that he had 4 stools each time having a small approximately 1 tablespoon worth of blood within it. His hemoglobin is stable. He is otherwise asymptomatic. His stools are softer now. No pain. Hemoglobin 11.7. Objective - Vital Signs Vital signs: Vital Signs Temp 98.1 F 11/14/16 15:00 Pulse 74 11/14/16 15:00 Resp 16 11/14/16 15:00 BP 133/73 11/14/16 15:00 Pulse Ox 96 11/14/16 15:00 Intake & Output 11/13/16 11/14/16 11/14/16 18:59 06:59 18:59 Intake Total 2300 2590 Balance 2300 2590 Weight 93.3 kg Intake: IV 500 Intake, IV Titration 1200 1200 Amount D5-0.9% NaCl with KCl 20 1000 1200 Meq/l 1,000 ml @ 150 mls/ hr IV .Q6H40M DARYN Rx#: [id number] Potassium Chloride 10 meq 200 Lidocaine 2% Inj 10 mg In Sodium Chloride 0.9% 100 ml @ 100 mls/hr IV Q1HR DARYN Rx#:[id number] Oral 600 1390 Other: Voiding Method Toilet Toilet Toilet # Voids 3 3 3 # Bowel Movements 2 3 - Exam Abdomen: Soft, nontender, nondistended - Labs CBC & Chem 7: 11/14/16 06:55 11/14/16 06:53 Labs: Abnormal Lab Results - Last 24 Hours (Table) 11/14/16 11/14/16 Range/Units 06:53 06:55 RBC 3.46 L (4.30-5.90) m/uL Hgb 11.6 L (13.0-17.5) gm/dL Hct 33.5 L (39.0-53.0) % Chloride 111 H (98-107) mmol/L BUN 6 L (9-20) mg/dL Glucose 113 H (74-99) mg/dL Assessment and Plan (1) GI bleed Narrative/Plan: Patient with admission for lower GI bleed. Etiology appears most likely based on colonoscopy to be a left-sided diverticular bleed. No active bleeding was seen at the time of endoscopy. We discussed the options of tagged RBC scan if his bleeding persists or increases. We'll reserve surgical resection for persistent bleeding. Status: Acute
[2016-11-15] MEDS: D5-0.9% NACL WITH KCL 20 MEQ/L 1,000 ML IV SCH ×2 (07:18→07:19)
--- NOTE | 2016-11-15 07:39 | PN ---
The patient feels good today. No abdominal pain. He just got down going to the restroom and had a large amount of clotted blood. At this time, his vital signs ( ) but he is feeling quite well. Hemoglobin today is 11.6. WBC is 5.3. He was initially 13 on admission. He denies any shortness of breath, chest pain, orthopnea or PND. His medications at this time include that of Magnesium and potassium replacement , morphine sulfate prn for pain. He is on Protonix 40 mg a.c. breakfast. IV fluids. Tylenol. Review of systems: Cardiopulmonary: No shortness of breath. No chest pain. No orthopnea. No paroxysmal nocturnal dyspnea. GI: No hematemesis. He did have some melena, and also some clotted red blood in the left colon. Abdomen soft, no organomegaly. has been normal. Normal urination multiple times last night and this morning. Neuromuscular: Good strength in his arms and his legs. He has arthritis pain that he normally has. SKIN: He has skin changes in his lower legs. Family history was reviewed, unchanged. Other than he said today that his father did have diverticulitis after checking back in with him. Blood pressure today 135/79. Heart rate is in the 70s. Temperature 97.4. Respiratory rate is 17. Eyes: PERRLA. ENT shows tympanic membranes and pharynx to be negative. Neck is supple with midline trachea. Chest is essentially clear to auscultation. Heart is sinus rhythm. Abdomen is soft. Nontender with no organomegaly. Lower extremities he has arthritis throughout his knees. Obviously evidence of arthritis in his hands. ASSESSMENT: 1. Acute gastrointestinal bleed, probably secondary to from diverticulitis per Dr. Sheppard. Please refer to his EGD and colonoscopy. 2. History of generalized arthritis. PLAN: Because of the clotted blood today, we will follow him another day due to [place] location [place]. I will see him in the morning. I will talk with Dr. Sheppard about the results. The options are continuing to bleed will be diverticulitis surgery. If not, we might be able to control this accordingly. [facility]
[2016-11-15 08:12] VITALS: BP 126/82; PULSE 98; RESP 16; TEMP 98.7
[2016-11-15] MEDS: PANTOPRAZOLE 40 MG TABLET PO SCH (09:02)
--- NOTE | 2016-11-15 11:37 | P.PN ---
Progress Note - Text The patient has no complaints. He has had no further evidence of bleeding. On exam his vital signs are stable. His abdomen is soft. History of lower GI bleed. The patient appears to have stopped bleeding. He appears to be stable for discharge. He'll follow-up in the office outpatient.
--- NOTE | 2016-11-18 11:51 | DS ---
DATE OF ADMISSION: 11/11/2016 DATE OF DISCHARGE: 11/15/2016 DISCHARGE DIAGNOSES: 1. Acute lower gastrointestinal bleed, anemia. 2. Gastroesophageal reflux. 3. Hypokalemia. 4. History of generalized osteoarthritis. 5. Depression, which is stable. Again, this is a 66-year-old white male who came into my office with some rectal bleeding for 2 days, rigid sigmoid was done in the office which showed large clots and some perfuse bleeding. At that period of time, he was initially placed in the hospital, he spent the first 3 days up in ICU for supportive care. When his bleeding was stabilized, he was then sent down for EGD and colonoscopy. EGD was within normal limits with mild duodenitis and the colonoscopy per Dr. Sheppard showed evidence of large clots and bleeding that was resolving in the left lower quadrant with a moderate amount of diverticulitis. At that period of time of day he was discharged to the regular floor. He did have two other bowel movements thereafter with large clots and bleeding. His hemoglobin while here in the hospital dropped from 13 to 11.6 at this period of time but it has stabilized and platelets have stayed normal. White count is at 5.3. His potassium at this period of time is set for 0.2 with replacement as is his magnesium which is stable at 2.1. At this period of time, he has has no abdominal pain or discomfort. He has had no bleeding since noon of yesterday. His vital signs are stable. Chest essentially clear to auscultation. Heart sinus rhythm. Abdomen is soft, nontender with no organomegaly. Negative extremities. He is being discharged home. Activity will be very minimal. He will be on a regular diet. His medications on discharge will be his: 1. Beta Carotene. 2. Nexium 3. Aspirin 81 mg. He will follow up with me in 2 days. He is going to follow up with Dr. Navarro on an outpatient basis. His prognosis is good. The plan at this point if he has recurrent bleeding, then a colectomy in that area will be necessary. Please refer to my orders. MTDD
== END 2016-11-15 12:05 | disposition home or self-care (01) | DRG 378 ==
LOC: EC 16:56 → 6ICU 20:10 → 3SUR 11-13 17:24
PROVIDERS: ADMIT Family Medicine; ATTEND Family Medicine
PROC: 0DB78ZX Excision of Stomach, Pylorus, Via Natural or Artificial Opening Endoscopic, Diagnostic (ICD-10-PCS; principal; 2016-11-13 08:35)
PROC: 0DJD8ZZ Inspection of Lower Intestinal Tract, Via Natural or Artificial Opening Endoscopic (ICD-10-PCS; 2016-11-13 08:35)
DX: K57.33 Diverticulitis of large intestine without perforation or abscess with bleeding (principal); D62 Acute posthemorrhagic anemia; E87.6 Hypokalemia; I44.4 Left anterior fascicular block; F12.90 Cannabis use, unspecified, uncomplicated; K57.30 Diverticulosis of large intestine without perforation or abscess without bleeding; K44.9 Diaphragmatic hernia without obstruction or gangrene; K29.70 Gastritis, unspecified, without bleeding; K29.80 Duodenitis without bleeding; R00.0 Tachycardia, unspecified; K21.0 Gastro-esophageal reflux disease with esophagitis; R05 Cough; I87.2 Venous insufficiency (chronic) (peripheral); M40.209 Unspecified kyphosis, site unspecified; M51.36 Other intervertebral disc degeneration, lumbar region; M19.041 Primary osteoarthritis, right hand; M19.042 Primary osteoarthritis, left hand; M17.0 Bilateral primary osteoarthritis of knee; R53.1 Weakness; Z79.899 Other long term (current) drug therapy; Z83.79 Family history of other diseases of the digestive system; Z79.82 Long term (current) use of aspirin; Z82.49 Family history of ischemic heart disease and other diseases of the circulatory system; Z91.19 Patient's noncompliance with other medical treatment and regimen; Z86.59 Personal history of other mental and behavioral disorders; Z72.89 Other problems related to lifestyle; Z86.19 Personal history of other infectious and parasitic diseases; Z87.09 Personal history of other diseases of the respiratory system; Z79.1 Long term (current) use of non-steroidal anti-inflammatories (NSAID)
CPT/HCPCS: 36415; 43239; 45378; 80048; 80053; 82272; 82550; 82553; 83735; 84100; 84484; 85025; 85027; 85610; 85730; 86850; 86900; 86901; 88305; 88342; 93005; 96361; 96374; 99285

== ENCOUNTER → 2017-07-01 | Outpatient (CLI) | payer MEDICARE, OTHER ==
--- NOTE | 2017-07-01 11:27 | US ---
EXAMINATION TYPE: US gallbladder DATE OF EXAM: 07/01/2017 COMPARISON: NONE CLINICAL HISTORY: 66-year-old male K82.9 Gallbladder Disease,K81 Cholecystitis. Intermittent dull rig ht sided pain Technique: Multiple sonographic images of the right upper quadrant are obtained. FINDINGS: Liver Length: 16.6 cm Gallbladder Wall: 0.3 cm CBD: 0.3 cm Right Kidney: 10.7 x 4.9 x 4.6 cm Pancreas: limited evaluation of the pancreatic tail due to overlying bowel content Liver: upper limits of normal in size with diffuse increased echogenicity. Gallbladder: mobile stones measuring up to 8 mm. No abnormal distention, wall thickening, or pericho lecystic fluid. Evidence for sonographic Nelson's sign: yes CBD: visualized portion appears wnl Right Kidney: No hydronephrosis IMPRESSION: 1. Liver at the upper limits of normal in size. Findings suggest moderate hepatic steatosis. Correlat e with LFTs, lipid profile, and patient risk factors. 2. Cholelithiasis. No ancillary ultrasound findings of acute cholecystitis. However, we note a positi ve sonographic Nelson sign. This may reflect referred pain. If further imaging evaluation of the gall bladder is desired, HIDA scan can be performed.
== END | disposition home or self-care (01) ==
LOC: RADUSWWP 09:45
PROVIDERS: ATTEND Family Medicine
DX: K80.20 Calculus of gallbladder without cholecystitis without obstruction (principal)
CPT/HCPCS: 76705

== ENCOUNTER 2017-08-27 06:42 | Day surgery (SDC) | payer MEDICARE, OTHER ==
[2017-08-21 11:59] VITALS: BMI 25.6
[~2017-08-27 06:42] MED LIST: DEXAMETHASONE SOD PHOSPHATE 10 MG/ML 1 ML VIAL IV ONE; HEPARIN SODIUM,PORCINE 5,000 UNIT/ML 1 ML VIAL SQ ONE; HYDROmorphone 0.5 MG/0.5 ML SYRINGE IVP PRN; MIDAZOLAM 2 MG/2 ML VIAL IV PRN; MORPHINE SULFATE 4 MG/ML SYRINGE IV PRN; ONDANSETRON 4 MG/2 ML VIAL IVP ONE; ceFAZolin IN SWFI 2 GM/20 ML SYRINGE IVP ONE
[2017-08-27] MEDS ORDERED: LIDOCAINE 1% 20 ML VIAL (10MG/ML) FOR IV START INTRADERMA ONE (07:06)
[2017-08-27] MEDS: LACTATED RINGERS 1,000 ML IV SCH ×2 (07:06→10:25)
--- NOTE | 2017-08-27 07:38 | P.GSHP ---
History of Present Illness H&P Date: 08/27/17 Chief Complaint: Right upper quadrant pain This is a 67-year-old male who presents today for laparoscopic cholestatic. Patient has had complaints of right quadrant pain. He is found have evidence of cholelithiasis. Patient also has noticed some fullness at his umbilicus. He will also have repair of umbilical hernia performed. Past Medical History Past Medical History: GERD/Reflux Additional Past Medical History / Comment(s): Hernia, GALLBLADDER ISSUE History of Any Multi-Drug Resistant Organisms: None Reported Past Surgical History: Hernia Repair, Tonsillectomy Additional Past Surgical History / Comment(s): EGD, COLONOSCOPY Past Anesthesia/Blood Transfusion Reactions: No Reported Reaction Past Psychological History: Depression Additional Psychological History / Comment(s): NO MEDS Smoking Status: Never smoker Past Alcohol Use History: Occasional Additional Past Alcohol Use History / Comment(s): 1 drink every other day Past Drug Use History: None Reported - Past Family History Mother Family Medical History: Congestive Heart Failure (CHF) Father Family Medical History: Dementia Medications and Allergies Home Medications Medication Instructions Recorded Confirmed Type Aspirin 81 mg PO DAILY 09/17/15 08/21/17 History Beta-Carotene [Beta Carotene] 25,000 unit PO DAILY 09/17/15 08/21/17 History Allergies Allergy/AdvReac Type Severity Reaction Status Date / Time No Known Allergies Allergy Verified 08/21/17 11:54 Surgical - Exam Vital Signs Temp Pulse Resp BP Pulse Ox 97.9 F 86 18 163/86 95 08/27/17 07:03 08/27/17 07:03 08/27/17 07:03 08/27/17 07:03 08/27/17 07:03 - General well developed, no distress - Eyes PERRL - ENT normal pinna - Neck no masses - Respiratory normal expansion - Cardiovascular Rhythm: regular - Abdomen Abdomen: soft, non tender Hernia: umbilical Assessment and Plan Assessment: Cholelithiasis we'll perform laparoscopic cholecystectomy, we'll also perform repair of umbilical hernia.
[2017-08-27] MEDS ORDERED: fentaNYL (PF) 50 MCG/ML 2 ML AMP ONE (07:58)
[2017-08-27] MEDS ORDERED: ROCURONIUM BROMIDE 10 MG/ML 10 ML VIAL IV ONE (07:58)
[2017-08-27] MEDS ORDERED: diphenhydrAMINE 50 MG/ML 1 ML VIAL ONE (07:58)
[2017-08-27] MEDS ORDERED: LIDOCAINE 1% INJ 10MG/ML (20 ML MDV) ONE (07:58)
[2017-08-27] MEDS ORDERED: GLYCOPYRROLATE 0.2 MG/ML 2 ML VIAL ONE (07:58)
[2017-08-27] MEDS ORDERED: HYDROmorphone (PF) 1 MG/ML ONE (07:58)
[2017-08-27] MEDS ORDERED: MORPHINE SULFATE 10 MG/ML SYRINGE ONE (07:58)
[2017-08-27] MEDS ORDERED: PROPOFOL 10 MG/ML 20 ML VIAL IV ONE (07:58)
[2017-08-27] MEDS ORDERED: NEOSTIGMINE 1 MG/ML 10 ML VIAL ONE (07:58)
[2017-08-27] MEDS ORDERED: SUCCINYLCHOLINE CHLORIDE 100 MG/5 ML SYR IV ONE (07:58)
[2017-08-27] MEDS ORDERED: MIDAZOLAM 2 MG/2 ML VIAL ONE (07:58)
[2017-08-27] MEDS ORDERED: BUPIVACAINE (PF) 0.5% 30 ML VIAL SQ ONE ×2 (08:05)
[2017-08-27] MEDS ORDERED: LACTATED RINGERS 1,000 ML IV ONE ×3 (08:18→13:44)
--- NOTE | 2017-08-27 09:12 | P.OP ---
Date of Procedure: 08/27/17 Preoperative Diagnosis: Cholecystitis Incarcerated incisional hernia Postoperative Diagnosis: Cholecystitis Incarcerated incisional hernia Procedure(s) Performed: Laparoscopic cholecystectomy Laparoscopic repair of incarcerated incisional hernia Partial omentectomy Anesthesia: RAFAEL Surgeon: Olegario Navarro Estimated Blood Loss (ml): 5 Pathology: other (Gallbladder, omentum) Condition: stable Disposition: PACU Description of Procedure: The patient was placed on the operating table. The patient received a general endotracheal tube anesthesia. The patients abdomen was prepped and draped in the usual sterile fashion. Through an infraumbilical stab incision, the fascia of the anterior abdominal wall was grasped with a pair of Kochers and then the Veress needle was placed in the peritoneal cavity. Position of the Veress needle was confirmed with positive drop test. The abdomen was then insufflated. After adequate insufflation, the 10 mm trocar was placed in the peritoneal cavity. Following this the laparoscope was placed in the peritoneal cavity. The patient was placed in the head-up, right side up position and then a 5 mm trocar was placed in the right lateral and right subcostal position under direct visualization. A 8 mm trocar was placed in the epigastric position. The gallbladder was grasped in the fundus and infundibulum. Traction on the gallbladder was placed in the lateral and the cephalad positions. The triangle of Calot was visualized.. The cystic duct was bluntly dissected until the union of the cystic duct and common bile duct was seen. The cystic duct was then divided and sealed with the Harmonic scissors. A PDS Endoloop was then placed throughout the cystic duct stump. The cystic artery divided and sealed with the Harmonic scissors. The gallbladder was then removed from the liver bed using Harmonic scissors. The gallbladder was then extracted through the epigastric port site. Operative field was checked for any bleeding spots and Harmonic scissors was used to coagulate the liver bed. The abdomen was irrigated. Next, the patient had incarcerated omentum located just below the umbilicus. The skin incision was extended. The incarcerated omentum was transected using left cautery and sent to pathology. The fascial defect was then closed using a Perfecto Guidry suture passer laparoscopically. 0 Ethibond was used to close the fascial defect. The trochars were then withdrawn. The skin was closed using interrupted 3-0 Vicryl suture. Dermabond dressing were applied. The patient tolerated the procedure well.
[2017-08-27 09:31] VITALS: TEMP 98.2
[2017-08-27 09:34] VITALS: RESP 16
[2017-08-27] MEDS ORDERED: ONDANSETRON 4 MG/2 ML VIAL IVP ONE (12:37)
[2017-08-27 13:01] VITALS: BP 134/78; PULSE 89
[2017-08-27] MEDS ORDERED: TAMSULOSIN 0.4 MG CAP.ER.24H PO STA (13:39)
== END 2017-08-27 14:31 | disposition home or self-care (01) ==
LOC: OR 06:42
PROVIDERS: ATTEND Surgery
DX: K80.10 Calculus of gallbladder with chronic cholecystitis without obstruction (principal); M60.28 Foreign body granuloma of soft tissue, not elsewhere classified, other site; Z18.89 Other specified retained foreign body fragments; K43.0 Incisional hernia with obstruction, without gangrene; K21.9 Gastro-esophageal reflux disease without esophagitis; F32.9 Major depressive disorder, single episode, unspecified; Z79.82 Long term (current) use of aspirin; Z79.899 Other long term (current) drug therapy
CPT/HCPCS: 88304; 88305; 47562; 49655; J2250; J1200; J1644; J1100; J2710; J2270; J2405; J2001; J3010; J1170; J0330; J2704; J0690

== ENCOUNTER → 2017-12-03 | Outpatient (CLI) | payer MEDICARE, OTHER ==
--- NOTE | 2017-12-04 07:49 | CT ---
EXAMINATION TYPE: CT sinus wo con DATE OF EXAM: 12/03/2017 COMPARISON: None HISTORY: Sinus pressure CT DLP: 642.[address] of the paranasal sinuses was performed in the axial and coronal planes. Bone and soft tissue settings are submitted. The paranasal sinuses demonstrate normal aeration and development. The paranasal sinuses are free of mucosal thickening or air fluid level. The osteal meatal units are patent bilaterally. The nasal septum is midline. No bony destructive changes are seen within the field of view. IMPRESSION: Normal unenhanced CT of the paranasal sinuses.
== END | disposition home or self-care (01) ==
LOC: RADCTMAIN 17:46
PROVIDERS: ATTEND Family Medicine
DX: J32.9 Chronic sinusitis, unspecified (principal)
CPT/HCPCS: 70486

== ENCOUNTER 2018-02-17 10:49 | Day surgery (SDC) | payer MEDICARE ==
[2018-02-12 11:22] VITALS: BMI 26.1
[~2018-02-17 10:49] MED LIST changes: -HEPARIN SODIUM,PORCINE 5,000 UNIT/ML 1 ML VIAL SQ ONE; -HYDROmorphone 0.5 MG/0.5 ML SYRINGE IVP PRN; +HYDROmorphone 1 MG/ML 1 ML SYRINGE IVP PRN; +LIDOCAINE 1% 20 ML VIAL (10MG/ML) FOR IV START INTRADERMA PRN; -MORPHINE SULFATE 4 MG/ML SYRINGE IV PRN; -ONDANSETRON 4 MG/2 ML VIAL IVP ONE; +SCOPOLAMINE 1.5MG/72HR PATCH TRANSDERM ONE
[2018-02-17] MEDS: LACTATED RINGERS 1,000 ML IV SCH ×5 (11:40→21:44)
[2018-02-17] MEDS: ONDANSETRON 4 MG/2 ML VIAL IVP ONE ×2 (11:43→16:52)
[2018-02-17] MEDS ORDERED: MIDAZOLAM 2 MG/2 ML VIAL IVP ONE (12:08)
[2018-02-17] MEDS ORDERED: NALOXONE 0.4 MG/ML 1 ML VIAL IV PRN (13:11)
[2018-02-17] MEDS ORDERED: MAGNESIUM HYDROXIDE 2,400 MG/10 ML CUP PO PRN (13:11)
[2018-02-17] MEDS ORDERED: HYDROcodone/APAP 5-325MG 1 EACH TAB PO PRN ×2 (13:11)
[2018-02-17] MEDS ORDERED: HYDROmorphone 1 MG/ML 1 ML SYRINGE IVP PRN ×2 (13:11)
[2018-02-17] MEDS ORDERED: MIDAZOLAM 2 MG/2 ML VIAL ONE (13:20)
[2018-02-17] MEDS ORDERED: HYDROmorphone (PF) 1 MG/ML ONE (13:20)
[2018-02-17] MEDS ORDERED: ROPIVACAINE 5 MG/ML 30 ML VIAL ONE (13:20)
[2018-02-17] MEDS ORDERED: LIDOCAINE 1% INJ 10MG/ML (20 ML MDV) ONE (13:20)
[2018-02-17] MEDS ORDERED: PROPOFOL 10 MG/ML 20 ML VIAL IV ONE (13:20)
[2018-02-17] MEDS ORDERED: NEOSTIGMINE 1 MG/ML 10 ML VIAL ONE (13:20)
[2018-02-17] MEDS ORDERED: GLYCOPYRROLATE 0.2 MG/ML 2 ML VIAL ONE (13:20)
[2018-02-17] MEDS ORDERED: fentaNYL (PF) 50 MCG/ML 2 ML AMP ONE (13:20)
[2018-02-17] MEDS ORDERED: SUCCINYLCHOLINE CHLORIDE 100 MG/5 ML SYR IV ONE (13:20)
[2018-02-17] MEDS ORDERED: LACTATED RINGERS 1,000 ML IV ONE ×2 (13:45)
--- NOTE | 2018-02-17 16:31 | XR ---
Limited left ankle HISTORY: Arthrodesis 4 intraoperative C-arm images document the procedure.
--- NOTE | 2018-02-17 16:32 | FL ---
Fluoroscopy HISTORY: Arthrodesis 1 minute 19 seconds fluoroscopy time supplied to the referring clinician. 4 intraoperative C-arm noemi ges document the procedure. See dictated report from orthopedic surgery.
--- NOTE | 2018-02-17 16:50 | P.OP ---
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 Left double arthrodesis (subtalar and talonavicular joint arthrodesis) 2. Left percutaneous tendo Achilles lengthening ([place] percutaneous triple hemisection) 3. Application of short leg splint by physician, left leg Anesthesia: ADITHYAA, regional Surgeon: Jono Dominguez Registered Radiologic Technologist #1: Leonel Forman Estimated Blood Loss (ml): 50 IV fluids (ml): 1,100 Pathology: none sent Condition: stable Disposition: PACU Indications for Procedure: The patient is a very pleasant 67-year-old male with a long-standing history of problems with his left foot. He presented to see me to discuss treatment. Clinically he had a rigid flat foot deformity. His x-rays showed a flatfoot deformity with significant collapse of the longitudinal arch and uncoverage of the talar head. He was initially managed with an Elin brace but had continued symptoms. We discussed different surgical treatment options including joint sparing and joint sacrificing procedures. Due to the patient's age, degree of deformity, and rigidity of deformity I recommended correction with a double arthrodesis and percutaneous tendo Achilles lengthening. We discussed the potential risks and complications of surgery including but not limited to risk of anesthesia, superficial infection, deep infection, delayed wound healing, wound necrosis, damage to local blood vessels or nerves, under correction of the deformity, overcorrection of the deformity, recurrence of the deformity, nonunion of the fusion sites, malunion of the fusion sites, some to make hardware, chronic pain, chronic swelling, inability to regain preinjury level of function, generalized to satisfaction of surgical outcome, DVT, PE, other medical complications, and possibly loss of life or limb. The patient also understands that he has some early arthritis in the ankle and may ultimately develop symptomatically ankle arthritis which may need surgery. We discussed that this is generally done as a staged procedure. If the flatfoot is adequately corrected he may be a candidate for total ankle replacement rather than a pantalar fusion. The patient voiced his understanding of this and provided his verbal and written consent to go forward with surgery. Description of Procedure: The patient was identified and prepped holding and the correct left leg was marked my initials. I reviewed the consent form with the patient and his . All their questions were answered. The patient was then given a popliteal and saphenous nerve block by anesthesia. He was brought to the operating room and positioned on the OR table where a general anesthetic was administered. The left leg had a tourniquet applied to the proximal aspect of the thigh. A bump was placed under the left buttock internally rotating the leg to neutral. The right leg was secured to the table with foam and tape. I performed a Silfverskiold test while the patient was under anesthesia. With the knee extended and flexed I was unable to passively dorsiflex the ankle past neutral. I interpreted this as a global Achilles tendon contracture requiring a percutaneous tendo Achilles lengthening. The left leg was then prepped and draped in standard sterile fashion. Prior to starting surgery timeout was performed identifying the correct patient, operative extremity, and procedure. The patient's leg was then elevated, exsanguinated with an Esmarch bandage, and the tourniquet was inflated to 250 mmHg. I began by performing a percutaneous tendo Achilles lengthening. Stab incisions were made with a 15 blade scalpel 2 cm intervals over the distal Achilles tendon. The lateral 50% of the Achilles tendon was released through the proximal and distal incisions and the medial 50% of the tendon was released to the middle incision. A gentle dorsiflexion of force was applied to the ankle and there was a palpable and audible pop as the Achilles lengthening. Following this there was some flexion past neutral with the knee extended. The Achilles tendon was palpably intact. Attention was then turned to correction of the flat foot deformity. Incisions were marked out for an oblique lateral exposure to the subtalar joint from the tip of the fibula extending distally in line with the fourth metatarsal and dorsally directly over the talonavicular joint. Skin incision was made laterally with a scalpel and dissection was carried down through subcutaneous tissue with tenotomy scissors. The interval between the peroneal tendons and the EDB was exploited. The capsule of the subtalar joint was opened sharply. K wires were placed for an invasive distractor. The distractor was gently opened and cartilages removed from the posterior and middle facets of the subtalar joint. The joint was copiously irrigated to remove all debris. The subchondral bone was perforated with a 2.5 mm drill bit to facilitate fusion. Attention was then turned dorsally. Skin incision was made a scalpel and dissection was carried down through subcutaneous tissue with tenotomy scissors. The interval between the tibialis anterior and EHL tendon was exploited. The capsule of the talonavicular joint was opened. K wires were placed in a distractor was applied to gain access to the joint. Articular cartilage was removed with a series of osteotomes and curettes. The joint was copiously irrigated removing all debris. A 2.0 mm drill bit was used to perforate the subchondral bone to facilitate fusion. Both fusion sites were then packed with a mixture of crushed cancellus allograft and augment. At this point the joint was positioned for fusion. The heel was brought out of valgus and a 0.0625 K wire was placed up through the anterior process of the calcaneus into the talar head. K wires were then placed percutaneously through the heel. The medial K wire was driven toward the talar neck and the more lateral K wire was driven toward the talar body. The position of the K wires were verified using multiple views and fluoroscopy. Partially threaded cannulated screws were then placed over the wires generating excellent compression across the subtalar joint. The forefoot was then rotated around the talar head correcting the forefoot abduction. A percutaneously placed K wire was placed through the navicular tuberosity and up into the talar body. Position of the K wire and correction of the talar head uncoverage was verified with fluoroscopy. A partially threaded 5.5 mm screw was placed over the K wire. A 4 hole claw plate was then placed dorsally over the talonavicular joint. Locking screws were placed proximally and distally. The compression device was used to generated additional compression across the talonavicular joint. Final fluoroscopic images were taken. Additional bone graft was packed laterally at the critical angle of Gissane. The wounds were carefully irrigated and then closed in layers. The tourniquet was let down. I verified that all instrument , sponge, and sharp counts were correct. A sterile dressing consisting of Betadine soaked Adaptic, 4 x 4, and web rolls applied. The drapes were taken down and a well-padded splint was applied with the ankle in neutral. The patient was then awoken from his anesthetic, transferred to a gurney, and brought to PACU having tolerated the procedure well. Leonel Rizviton PAC was required as a skilled advertising assistant for patient positioning, surgical exposure, retraction, completion of the procedure, closure of wounds, application of splint area Plan: the patient is to be strictly nonweightbearing on his left leg. If he is comfortable he will discharge home. She has pain or nausea is going to be admitted overnight for pain control. He'll need 2 doses of postoperative antibiotics.
[2018-02-17] MEDS ORDERED: PROMETHAZINE INJ 25 MG/ML 1 ML VIAL IVPB ONE (17:17)
[2018-02-17] MEDS: ceFAZolin IN SWFI 2 GM/20 ML SYRINGE IVP SCH ×2 (18:29→23:30)
[2018-02-17] MEDS ORDERED: SENNOSIDES-DOCUSATE SODIUM 1 EACH TAB PO SCH (21:00)
[2018-02-18] MEDS: LACTATED RINGERS 1,000 ML IV SCH (04:39)
[2018-02-18 07:46] VITALS: BP 134/74; PULSE 85; RESP 16; TEMP 98.3
[2018-02-18] MEDS ORDERED: ENOXAPARIN 40 MG/0.4 ML SYRINGE SQ SCH (09:00)
--- NOTE | 2018-02-18 11:14 | P.DS ---
Providers Date of admission: 02/17/18 Attending physician: Jono Dominguez Primary care physician: Stated None Hospital Course: This patient is a 67-year-old male that has been seen in our office by Dr. Dominguez for rigid flat foot deformity of the left foot. After discussion and consideration the patient elected to proceed with a left subtalar and talonavicular joint arthrodesis, and a left percutaneous tendo Achilles lengthening on 02/17/[address] Dominguez. Patient was admitted to [facility] following the procedure for pain management. The procedure was performed without complication or sequelae. The patient is doing well postoperatively. Vital signs and postoperative labs are stable. The patient is ambulating with a knee scooter with minimal assistance. Patient was seen at bedside today and he has no new complaints. Denies chest pain, shortness of breath, fevers, chills, nausea, or vomiting. He states his pain is currently well-controlled. LIVIA wrap was changed on bulky strickland splint bedside today. Bulky strickland splint in place on the left leg. Active ROM of left toes. Left lower extremity neurovascular intact. Right lower extremity neurovascular intact. Full active and passive ROM of right ankle and foot. Right calf is nontender and soft. The patient is discharged to home today in good condition. Please see discharge orders. Please refer to the med rec for accurate list of medications. Procedures: 1. Left subtalar and talonavicular joint arthrodesis 2. Left percutaneous tendo Achilles lengthening ([place] percutaneous triple hemisection) Plan - Discharge Summary Discharge Rx Participant: Yes New Discharge Prescriptions: New Aspirin 325 mg PO DAILY #14 tab Docusate [Colace] 100 mg PO BID #60 capsule No Action Beta-Carotene [Beta Carotene] 25,000 unit PO DAILY guaiFENesin [Mucinex] 600 mg PO Q12HR PRN PRN Reason: Allergic Reaction Fluticasone Nasal [place] [Flonase Nasal [place]] 1 spray EA NOSTRIL DAILY Esomeprazole Magnesium [NexIUM] 40 mg PO QAM Tamsulosin HCl [Flomax] 0.4 mg PO DAILY Levocetirizine Dihydrochloride [Xyzal] 5 mg PO DAILY Aspirin [Adult Low Dose Aspirin EC] 81 mg PO DAILY Acetaminophen [Tylenol Extra Strength] 1,000 mg PO DAILY Discharge Medication List Beta-Carotene [Beta Carotene] 25,000 unit PO DAILY 09/17/15 [History] Acetaminophen [Tylenol Extra Strength] 1,000 mg PO DAILY 02/12/18 [History] Aspirin [Adult Low Dose Aspirin EC] 81 mg PO DAILY 02/12/18 [History] Esomeprazole Magnesium [NexIUM] 40 mg PO QAM 02/12/18 [History] Fluticasone Nasal [place] [Flonase Nasal [place]] 1 spray EA NOSTRIL DAILY 02/12/18 [History] Levocetirizine Dihydrochloride [Xyzal] 5 mg PO DAILY 02/12/18 [History] Tamsulosin HCl [Flomax] 0.4 mg PO DAILY 02/12/18 [History] guaiFENesin [Mucinex] 600 mg PO Q12HR PRN 02/12/18 [History] Aspirin 325 mg PO DAILY #14 tab 02/18/18 [Rx] Docusate [Colace] 100 mg PO BID #60 capsule 02/18/18 [Rx] Follow up Appointment(s)/Referral(s): Jono Dominguez MD [Medical Doctor] - 03/02/18 1:10 pm Patient Instructions/Handouts: *Surgery [facility] - (Anesthesia) Discharge Instructions Outpatient Surgery Activity/Diet/Wound Care/Special Instructions: 1. Strict non-weight bearing on left leg 2. Keep splint clean and dry 3. Ice and elevate left leg 4. Take pain medications as directed. Take colace or Miralax as a stool softener. 5. Take an aspirin for blood clot prevention Discharge Disposition: HOME SELF-CARE
[2018-02-18] MEDS ORDERED: MULTIVITAMINS, THERA 1 EACH TAB PO SCH (12:00)
== END 2018-02-18 14:17 | disposition home or self-care (01) ==
LOC: OR 10:49 → 4SSUR 16:44 → OR 02-18 14:17
PROVIDERS: ATTEND Orthopaedic Surgery
DX: M21.42 Flat foot [pes planus] (acquired), left foot (principal); M67.02 Short Achilles tendon (acquired), left ankle; N40.0 Benign prostatic hyperplasia without lower urinary tract symptoms; K21.9 Gastro-esophageal reflux disease without esophagitis; Z79.82 Long term (current) use of aspirin; Z79.899 Other long term (current) drug therapy
CPT/HCPCS: 97162; 73610; 28725; 28740; 27685; 64447; 64450; C1713 ×3; J2250; J1100; J2550; J2710; J2405; J2001; J1650; J3010; J1170; J2795; J0330; J2704; J0690

== ENCOUNTER → 2019-01-29 | Outpatient (CLI) | payer MEDICARE ==
--- NOTE | 2019-01-29 15:51 | MR ---
EXAMINATION TYPE: MR iac wo/w con DATE OF EXAM: 01/29/2019 COMPARISON: None HISTORY: Vertigo TECHNIQUE: Multiplanar, multisequence images of the brain and brainstem is performed without and with IV contras t, utilizing 10 mL intravenous Gadavist . FINDINGS: There is cerebral cortical atrophy. There is no mass effect normal Shift. There is no sign of intracranial hemorrhage. Diffusion images show no evidence of acute cortic al infarct. Navarro-white matter structures have fairly normal signal pattern. There is no evidence of c erebral edema. Brainstem is intact. Corpus callosum is intact. Sella turcica appears normal. The internal auditory canals appear normal. Vestibular and acoustic nerves appear normal. There is la rge left vertebral artery. There is no pathologic enhancement. IMPRESSION: Mild atrophy. No acute intracranial abnormality. No posterior fossa abnormality.
== END | disposition home or self-care (01) ==
LOC: RADMRIMAIN 11:38
PROVIDERS: ATTEND Otolaryngology
DX: G31.9 Degenerative disease of nervous system, unspecified (principal)
CPT/HCPCS: 70553; A9585

== ENCOUNTER → 2019-06-13 | Outpatient (CLI) | payer MEDICARE ==
[2019-06-13 20:02] LABS: Calcium 8.6 mg/dL (8.7-10.3); Magnesium 1.9 mg/dL (1.5-2.4); Phosphorus 3.2 mg/dL (2.4-5.1); Potassium 3.8 mmol/L (3.5-5.5)
== END | disposition home or self-care (01) ==
LOC: LABWHC1 13:32
PROVIDERS: ATTEND Psychiatry & Neurology Neurology
DX: M62.838 Other muscle spasm (principal)
CPT/HCPCS: 36415; 82310; 82607; 83735; 84100; 84132; 84295

== ENCOUNTER → 2022-01-17 | Outpatient (CLI) | payer MEDICARE ==
--- NOTE | 2022-01-17 12:54 | CT ---
EXAMINATION TYPE: CT right knee - [facility] Protocol DATE OF EXAM: 01/17/2022 COMPARISON: None HISTORY: 71-year-old male M17.11 UILATERL PRIMARY OSTEOARTHRITIS R KNEE CT DLP: 549.1 mGycm. Automated exposure control for dose reduction was used. TECHNIQUE: Contiguous axial scanning of the right knee without IV contrast. Selected images through t he hips and ankles also obtained. Coronal and sagittal reconstructions performed. Imaging for surgica l planning purposes. FINDINGS: Sigmoid diverticulosis. Prostate gland is 4.8 cm wide. Mild degenerative change of both hips. Knee shows moderate joint effusion and mild chronic synovitis. There is tricompartmental osteoarthros is, greatest in the patellofemoral and medial compartments. There appears to be a fragmentation spur from the margin of the medial tibial plateau. A small to moderate-sized Thakkar's cyst measures 5.6 x 2 .6 cm. Extensor mechanism is intact. Suspect an additional ganglion cyst posterior aspect of the dist al femoral shaft measuring 2.6 cm. Left foot shows extensive fixation hardware mid to hindfoot. Some underlying degenerative change at t he left tibiotalar and subtalar joint. IMPRESSION: Imaging for surgical planning purposes. Tricompartmental OA right knee, greatest in the medial and pa tellofemoral compartments. Chronically fragmented inner lip of the medial tibial plateau. Moderate armida int effusion with mild chronic synovitis and a small to moderate-sized 5.6 cm Thakkar's cyst.
== END | disposition home or self-care (01) ==
LOC: RADCTMAIN 10:55
PROVIDERS: ATTEND Orthopaedic Surgery
DX: M17.11 Unilateral primary osteoarthritis, right knee (principal); M21.161 Varus deformity, not elsewhere classified, right knee; E11.9 Type 2 diabetes mellitus without complications

== ENCOUNTER → 2022-01-30 | Outpatient (CLI) | payer MEDICARE ==
[2022-01-30 12:32] LABS: Partial Thromboplastin Time 26.8 sec (22.0-30.0); Prothrombin Time 10.5 sec (9.0-12.0)
[2022-01-30 18:33] LABS: HCT 43.3 % (39.6-50.0); HGB 14.7 g/dL (13.0-17.0); MCH 31.4 pg (27.0-32.0); MCHC 33.9 g/dL (32.0-37.0); MCV 92.5 fL (80.0-97.0); Mean Platelet Volume 9.2 fL (9.5-12.2); NRBC Per 100 WBC 0 /100 WBCS (0.0-0.0); Platelet Count 193 X 10*3/uL (140-440); RBC 4.68 X 10*6/uL (4.40-5.60); RDW 13.3 % (11.5-14.5); WBC 5.85 X 10*3/uL (4.50-10.00)
[2022-01-30 19:08] LABS: Appearance,Urine Clear (Clear); Bilirubin,Urine Negative (Negative); Blood,Urine Negative (Negative); Color,Urine Yellow (Yellow); Ketones,Urine Negative (Negative); Nitrite,Urine Negative (Negative); Specific Gravity,Urine 1.012 (1.001-1.030); Urobilinogen,Urine 0.2 (0.2,1.0)
[2022-01-30 20:01] LABS: African American GFR (CKD) 64.7 (60.0-200.0); Albumin 4.3 g/dL (3.8-4.9); Albumin/Globulin Ratio 1.86 (1.60-3.17); Anion Gap 12.9 mmol/L (10.00-18.00); BUN/Creat Ratio 17.21 Ratio (12.00-20.00); Blood Urea Nitrogen 22.2 mg/dL (9.0-27.0); Calcium 8.9 mg/dL (8.7-10.3); Carbon Dioxide 22.5 mmol/L (20.0-27.5); Globulin 2.3 g/dL (1.6-3.3); Non-African American GFR(CKD) 55.8 (60.0-200.0); Potassium 4.2 mmol/L (3.5-5.5); Total Bilirubin 0.8 mg/dL (0.30-1.20); Total Protein 6.7 g/dL (6.2-8.2)
== END | disposition home or self-care (01) ==
LOC: LABPAT 11:08
PROVIDERS: ATTEND Orthopaedic Surgery
DX: Z01.812 Encounter for preprocedural laboratory examination (principal); M17.11 Unilateral primary osteoarthritis, right knee
CPT/HCPCS: 80053; 81003; 85027; 85610; 85730; 87070

== ENCOUNTER 2022-02-21 13:34 | Day surgery (SDC) | payer MEDICARE ==
[~2022-02-21 13:34] MED LIST changes: +ACETAMINOPHEN TAB 500 MG TAB PO PRN; -DEXAMETHASONE SOD PHOSPHATE 10 MG/ML 1 ML VIAL IV ONE; +DEXAMETHASONE SOD PHOSPHATE 10 MG/ML 1 ML VIAL IV PRN; +DOCUSATE 100 MG CAP PO PRN; +FAMOTIDINE 20 MG/2 ML VIAL IVP PRN; +HYDROmorphone 0.5 MG/0.5 ML SYRINGE IVP PRN; -HYDROmorphone 1 MG/ML 1 ML SYRINGE IVP PRN; +KETOROLAC 15 MG/ML 1 ML VIAL IVP PRN; -LIDOCAINE 1% 20 ML VIAL (10MG/ML) FOR IV START INTRADERMA PRN; +ONDANSETRON 4 MG/2 ML VIAL IVP PRN; +ROPIVACAINE 246.25 MG, EPINEPHrine 0.5 MG, KETOROLAC (30 mg/mL) 30 MG, cloNIDine HCL/PF... MISCELLANE PRN; -SCOPOLAMINE 1.5MG/72HR PATCH TRANSDERM ONE; +TRANEXAMIC ACID IN NACL,ISO-OS 1,000 MG in SALINE 1 100ML.BAG IVPB PRN; -ceFAZolin IN SWFI 2 GM/20 ML SYRINGE IVP ONE; +oxyCODONE ER 10 MG TAB.ER.12H PO PRN
[2022-02-21] MEDS: LACTATED RINGERS 1,000 ML IV SCH ×2 (14:24→21:28)
[2022-02-21 14:30] LABS: Glucose,Whole Blood 90 mg/dL (70-110)
[2022-02-21] MEDS ORDERED: MIDAZOLAM 2 MG/2 ML VIAL IV ONE (14:48)
[2022-02-21] MEDS ORDERED: MIDAZOLAM 2 MG/2 ML VIAL ONE (16:08)
[2022-02-21] MEDS ORDERED: fentaNYL (PF) 50 MCG/ML 2 ML AMP ONE (16:08)
[2022-02-21] MEDS ORDERED: HYDROmorphone (PF) 1 MG/ML ONE (16:08)
[2022-02-21] MEDS ORDERED: LIDOCAINE 2% INJ 20 MG/ML (2 ML VIAL) ONE (16:08)
[2022-02-21] MEDS ORDERED: PROPOFOL 10 MG/ML 20 ML VIAL IV ONE (16:08)
[2022-02-21] MEDS ORDERED: GLYCOPYRROLATE 0.2 MG/ML 2 ML VIAL ONE (16:08)
[2022-02-21] MEDS ORDERED: ROPIVACAINE 5 MG/ML 30 ML VIAL ONE (16:08)
[2022-02-21] MEDS ORDERED: SODIUM CHLORIDE 0.9% (PF) 10 ML VIAL ONE (16:08)
[2022-02-21] MEDS ORDERED: TRANEXAMIC ACID IN NACL,ISO-OS 1,000 MG/100 ML BAG ONE (16:08)
[2022-02-21] MEDS ORDERED: LACTATED RINGERS 1,000 ML IV ONE (16:50)
--- NOTE | 2022-02-21 17:06 | P.ANPRN ---
Procedure Note - Anesthesia - Nerve Block Performed Right Adductor Canal Single Time Out Performed: Yes (1447) Date of Procedure: 02/21/22 Procedure Start Time: 14:48 Procedure Stop Time: 14:53 Location of Patient: PreOp Indication: Acute Post-Operative Pain, Requested by Surgeon Specifically requested for management of pain by DrPamela: Jono Dominguez Sedation Type: Sedate with meaningful contact maintained Preparation: Sterile Prep Position: Supine Catheter: None Needle Types: Pajunk Needle Gauge: 21 Ultrasound used to visualize needle placement: Yes Ultrasound used to observe medication spread: Yes Injectate: 0.5% Ropivacaine (see comment for volume) (15CC + 10CC NACL PF) Blood Aspirated: No Pain Paresthesia on Injection Noted: No Resistance on Injection: Normal Image Stored and Saved: Yes Events: Uneventful and Well Tolerated
--- NOTE | 2022-02-21 17:07 | P.ANPRN ---
Procedure Note - Anesthesia - Nerve Block Performed Right iPack Single Time Out Performed: Yes (1447) Date of Procedure: 02/21/22 Procedure Start Time: 14:54 Procedure Stop Time: 14:57 Location of Patient: PreOp Indication: Acute Post-Operative Pain, Requested by Surgeon Specifically requested for management of pain by DrPamela: Jono Dominguez Sedation Type: Sedate with meaningful contact maintained Preparation: Sterile Prep Position: Supine Catheter: None Needle Types: Pajunk Needle Gauge: 21 Ultrasound used to visualize needle placement: Yes Ultrasound used to observe medication spread: Yes Injectate: 0.5% Ropivacaine (see comment for volume) (15CC + 10CC NACL PF) Blood Aspirated: No Resistance on Injection: Normal Image Stored and Saved: Yes Events: Uneventful and Well Tolerated
[2022-02-21] MEDS ORDERED: HYDROcodone/APAP 5-325MG 1 EACH TAB PO PRN (18:42)
[2022-02-21] MEDS ORDERED: NALOXONE 0.4 MG/ML 1 ML VIAL IV PRN (18:42)
[2022-02-21] MEDS ORDERED: HYDROmorphone 0.5 MG/0.5 ML SYRINGE IVP PRN ×3 (18:42)
[2022-02-21] MEDS ORDERED: ONDANSETRON 4 MG/2 ML VIAL IVP PRN (18:42)
[2022-02-21] MEDS ORDERED: hydrOXYzine pamoate 25 MG CAP PO PRN (18:42)
--- NOTE | 2022-02-21 18:50 | P.OP ---
Date of Procedure: 02/21/22 Preoperative Diagnosis: Severe right knee osteoarthritis Postoperative Diagnosis: Severe right knee after arthritis Procedure(s) Performed: Right total knee meatoplasty Implants: 1. [place] Triathlon CR Femur Size #7 2. [place] Triathlon Theodore Tibial Base Size #7 3. [place] Triathlon CS poly Size #7, 9-mm 4. [place] Triathlon all poly patella, Size #38 Anesthesia: regional, spinal Surgeon: Jono Dominguez Kitchen Help Handyman #1: Leonel Forman Estimated Blood Loss (ml): 200 IV fluids (ml): 1,200 Pathology: none sent (Routine gross and/or histopathologic evaluation not indicated based on my intraoperative observations and evaluation of preoperative imaging. Findings consistent with osteoarthritis) Condition: stable Disposition: PACU Indications for Procedure: I met with the patient preoperatively in the office setting and discussed treatment of their symptomatic knee arthritis. They failed a long course of nonsurgical treatment and elected to proceed with an elective total knee replacement. I discussed the potential risks and complications at length and gave them ample time to ask questions. Risks discussed included: risks from anesthesia, superficial site surgical infection, acute and/or chronic periprosthetic joint infection, delayed wound healing, drainage, wound necrosis, instability, stiffness, stiffness requiring manipulation and/or revision surgery, damage to local blood vessels or nerves, aseptic loosening of the implants, extensor mechanism issues including disruption, patellar maltracking, avascular necrosis etc., continued or worsened knee pain, generalized dissatis faction with surgical outcome, need for revision surgery, an inability to regain preinjury level of function, DVT, PE, other medical complications, and possibly loss of life or limb. The patient voiced their understanding that while these are the most common complications other less common complications are possible. They provided both their verbal and written consent to go forward with surgery. Operative Findings: Severe tricompartmental osteoarthritis Description of Procedure: The patient was identified in preoperative holding and the correct operative extremity was verified and marked with a marker. I reviewed the consent form with the patient at length. All of their questions were answered. The patient was given a block by anesthesia. They were then brought back to the operating room. They were transferred onto the operating room table where a general anesthetic, preoperative antibiotics, and tranexamic acid were administered by anesthesia. A tourniquet was applied to the proximal aspect of the operative extremity. The contralateral extremity was padded under the heel and secured to the operating room table with a nonsterile blue towel and tape. The ipsilateral arm was carefully draped across the patient's chest and secured with a pillow and foam. A post was applied over the lateral aspect of the ipsilateral thigh and a bolster was placed under the ipsilateral foot. I verified that the operative extremity was stable and the knee was flexed to 90. The operative extremity was then placed in a leg zamora, nonsterile drapes were applied, and the extremity was prepped and draped sterilely in the standard sterile fashion. Prior to starting surgery timeout was performed identifying the correct patient, operative extremity, and procedure. The leg was then elevated, exsanguinated with an Esmarch bandage, and the tourniquet was inflated. An anterior midline incision was made sharply with a scalpel. Once I had dissected deep to the superficial fascial layer medial and lateral flaps were elevated. A medial parapatellar arthrotomy was created. Upon opening the knee joint there were diffuse arthritic changes in all 3 compartments. The anterior horn of the medial meniscus were sharply released and a medial release was performed around the posterior medial corner of the knee to facilitate retractor placement. The fat pad was excised with electrocautery. The patella was found to be severely arthritic and a provisional cut was made with a sagittal saw to facilitate mobilization of the extensor mechanism during the procedure. Remnants of the ACL and PCL were then excised from the notch. 4 mm pins were then placed within the incision in the medial distal femur and proximal tibia. Arrays were applied to the pins and I verified they were completely tightened. The knee was then registered with the Luxr robot and manipulations in implant position were made to balance the knee and opitmize implant position. Using the Luxr robotic saw all cuts were made in accordance with our plan. After all bony fragments had been removed the cuts were verified with the planar probe. The tibia was then subluxed forward and sized. The knee was brought into flexion and a lamina cdl team truck driver was placed to allow removal of the meniscal remnants both medially and laterally as well as posterior osteophytes. Local anesthetic was then infiltrated around the joint capsule. Trial implants were then placed within the knee. Range of motion and collateral ligament tension was then evaluated. Adjustments in implant size and position were then made accordingly. Once the knee was felt to be appropriately balanced the Pablo pins were removed. The patella was then recut, sized, and punched. A trial patellar button was then placed. With the trial components in place, the patella tracked midline. The femur was then drilled and the trial component removed. The trial tibial component was then appropriately rotated, pinned, and prepared for the keel. All trial components were then removed from the knee. The knee was thoroughly irrigated with pulsatile lavage. Cement was prepared via vacuum mixing in a bowl on the back table. I then hand pressurized cement into the femur and tibia and placed the implants beginning with the tibial base tray and poly liner, femoral component, and finally the patellar button. All extruded cement was removed including from the pin sites. Once the cement had hardened the knee was evaluated one final time with the final polyethylene liner in place. The knee had full extension and flexion and felt stable to varus and valgus stress throughout the arc of motion. The tourniquet was released and with the tourniquet down the patella tracked midline. All bleeders were controlled with electrocautery. The knee was then soaked for 3 minutes with a dilute Betadine soak. The knee was thoroughly irrigated using 3 L of sterile saline and pulsatile lavage. A deep drain was placed. The extensor mechanism was then reapproximated using pop off Vicryl sutures followed by a running barbed suture. The knee was then closed in layers with a 0 strata fix for the deep fascial layer, 2-0 strata fix for the superficial subcutaneous layer and Monocryl and Steri-Strips for the skin. A sterile dressing and drain sponge were applied. I verified that all instrument, sponge, and sharp counts were correct. The patient was then transferred off the operating room table, extubated, and brought to recovery having tolerated the procedure well. Leonel Forman PA-C was required as a skilled mechanic assistant due to the complexity of the procedure for patient positioning, draping, retraction, placement of hardware, and closure of wound. PLAN: The patient can weight-bear as tolerated on the operative extremity. DVT prophylaxis with aspirin 81 mg twice a day based on preoperative risk stratification. Follow-up in the office in 2 weeks for wound check and x-rays of the knee including an AP and lateral.
--- NOTE | 2022-02-21 19:42 | XR ---
EXAMINATION TYPE: XR knee limited RT DATE OF EXAM: 02/21/2022 6:59 PM INDICATION: Patient age:Male; 71 years old; Reason for study: post-op; [facility]. COMPARISON: Right knee Pabol 01/17/2022. TECHNIQUE: The Right knee(s) was examined in Frontal, lateral and oblique projections. FINDINGS: Status post left total knee arthroplasty changes with hardware in appropriate alignment a nd intact. No evidence of fracture. Subcutaneous lucencies and lucencies within the joint consistent with surgical changes. IMPRESSION: Status post total knee arthroplasty changes with hardware intact and appropriate alignment. No fractu res identified.
[2022-02-21] MEDS ORDERED: SENNOSIDES-DOCUSATE SODIUM 1 EACH TAB PO SCH (21:00)
[2022-02-21] MEDS: ASPIRIN 81 MG PO SCH (21:29)
[2022-02-22] MEDS: HYDROcodone/APAP 5-325MG 1 EACH TAB PO PRN ×2 (03:25→11:04)
[2022-02-22] MEDS ORDERED: ALBUTEROL NEBULIZED 2.5 MG/3 ML INHALATION PRN (07:15)
[2022-02-22] MEDS ORDERED: NON FORMULARY DRUG (Albuterol Inhaler 90 MCG Puff) INHALATION PRN (07:15)
[2022-02-22 07:23] VITALS: BP 126/53; PULSE 66; RESP 18; TEMP 97.9
[2022-02-22] MEDS: ASPIRIN 81 MG PO SCH (08:37)
--- NOTE | 2022-02-22 08:42 | P.DS ---
Providers Date of admission: 02/21/2022 Attending physician: Jono Dominguez Consults: 02/21/22 18:42 Consult Physician Routine Consulting Provider: Giovany Baker Reason/Comments: medical management Do you want consulting provider notified?: Yes Primary care physician: Giovany Baker [facility] Course: The patient is very pleasant previously healthy 71-year-old male who is admitted to the hospital and underwent an uncomplicated right total knee replacement yesterday. He was admitted under my care overnight. He did well postoperatively. He was transitioned from IV to oral pain medication. He received 2 doses of postoperative antibiotics. His drain was pulled postoperative day #1. He was ultimately cleared for discharge home. Patient Condition at Discharge: Good Plan - Discharge Summary Discharge Rx Participant: No New Discharge Prescriptions: New HYDROcodone/APAP 5-325MG [[place] 5-325] 1 - 2 tab PO Q6HR PRN 7 Days #32 tab PRN Reason: Pain Diclofenac Sodium [Voltaren] 75 mg PO BID 30 Days #60 tab Aspirin 81 mg PO BID 30 Days #60 tab Docusate [Colace] 100 mg PO BID #60 capsule Omeprazole 40 mg PO DAILY 30 Days #30 cap No Action guaiFENesin [Mucinex] 600 mg PO Q12HR Fluticasone Nasal [place] [Flonase Nasal [place]] 1 spray EA NOSTRIL DAILY Esomeprazole Magnesium [NexIUM] 40 mg PO QAM Tamsulosin HCl [Flomax] 0.4 mg PO HS Aspirin [Adult Low Dose Aspirin EC] 81 mg PO DAILY Pregabalin [Lyrica] 150 mg PO BID Furosemide [Lasix] 20 mg PO DAILY Metoprolol Succinate (ER) [Toprol Xl] 25 mg PO DAILY Meloxicam [Mobic] 15 mg PO DAILY Albuterol Nebulized [Ventolin Nebulized] 2.5 mg INHALATION Q6H PRN PRN Reason: Shortness Of Breath Albuterol Inhaler [Ventolin Hfa Inhaler] 1 - 2 puff INHALATION Q6H PRN PRN Reason: Shortness Of Breath Naproxen Sodium [Aleve] 220 mg PO BID PRN PRN Reason: Pain Docusate [Colace] 3 tab PO HS Potassium Chloride ER [K-Dur 10] 10 meq PO DAILY Montelukast [Singulair] 10 mg PO DAILY Dulaglutide [Trulicity] 1.5 mg SQ TH Cholecalciferol [Vitamin D3 (125 Mcg = 5000 Iu)] 125 mcg PO DAILY Discharge Medication List Aspirin [Adult Low Dose Aspirin EC] 81 mg PO DAILY 02/12/18 [History] Esomeprazole Magnesium [NexIUM] 40 mg PO QAM 02/12/18 [History] Fluticasone Nasal [place] [Flonase Nasal [place]] 1 spray EA NOSTRIL DAILY 02/12/18 [History] Tamsulosin HCl [Flomax] 0.4 mg PO HS 02/12/18 [History] guaiFENesin [Mucinex] 600 mg PO Q12HR 02/12/18 [History] Albuterol Inhaler [Ventolin Hfa Inhaler] 1 - 2 puff INHALATION Q6H PRN 02/17/22 [History] Albuterol Nebulized [Ventolin Nebulized] 2.5 mg INHALATION Q6H PRN 02/17/22 [History] Docusate [Colace] 3 tab PO HS 02/17/22 [History] Dulaglutide [Trulicity] 1.5 mg SQ TH 02/17/22 [History] Furosemide [Lasix] 20 mg PO DAILY 02/17/22 [History] Meloxicam [Mobic] 15 mg PO DAILY 02/17/22 [History] Metoprolol Succinate (ER) [Toprol Xl] 25 mg PO DAILY 02/17/22 [History] Montelukast [Singulair] 10 mg PO DAILY 02/17/22 [History] Naproxen Sodium [Aleve] 220 mg PO BID PRN 02/17/22 [History] Potassium Chloride ER [K-Dur 10] 10 meq PO DAILY 02/17/22 [History] Pregabalin [Lyrica] 150 mg PO BID 02/17/22 [History] Cholecalciferol [Vitamin D3 (125 Mcg = 5000 Iu)] 125 mcg PO DAILY 02/20/22 [His tory] Aspirin 81 mg PO BID 30 Days #60 tab 02/21/22 [Rx] Diclofenac Sodium [Voltaren] 75 mg PO BID 30 Days #60 tab 02/21/22 [Rx] Docusate [Colace] 100 mg PO BID #60 capsule 02/21/22 [Rx] HYDROcodone/APAP 5-325MG [[place] 5-325] 1 - 2 tab PO Q6HR PRN 7 Days #32 tab 02/21/22 [Rx] Omeprazole 40 mg PO DAILY 30 Days #30 cap 02/21/22 [Rx] Follow up Appointment(s)/Referral(s): [facility]idential Home[facility] [NON-STAFF] - 1-2 Days Jono Dominguez MD [Medical Doctor] - 2 Weeks Activity/Diet/Wound Care/Special Instructions: Weight bear to tolerance on operative extremity with a walker. Keep operative dressing intact until follow-up appointment in the office. Call the office if dressing becomes saturated or falls off. May shower over dressing. Take pain medications as prescribed. Take aspirin 81mg BID x 4 weeks for blood clot prevention. Follow-up in the office in two weeks in [facility]. Call the office with any questions or concerns, . Discharge Disposition: HOME WITH HOME HEALTH SERVICES
[2022-02-22] MEDS ORDERED: CHOLECALCIFEROL 125 MCG (5000 IU) TABLET PO SCH (09:00)
[2022-02-22] MEDS ORDERED: PANTOPRAZOLE 40 MG TABLET PO SCH (09:00)
[2022-02-22] MEDS ORDERED: POTASSIUM CHLORIDE ER 10 MEQ TAB.ER.PRT PO SCH (09:00)
[2022-02-22] MEDS ORDERED: PREGABALIN 75 MG CAP PO SCH (09:00)
[2022-02-22] MEDS ORDERED: FLUTICASONE 50MCG/SPRAY NASAL 16GM EA NOSTRIL SCH (09:00)
[2022-02-22] MEDS ORDERED: FUROSEMIDE 20 MG TAB PO SCH (09:00)
[2022-02-22] MEDS ORDERED: METOPROLOL SUCCINATE (ER) 25 MG TAB.ER.24H PO SCH (09:00)
[2022-02-22] MEDS ORDERED: MONTELUKAST 10 MG TAB PO SCH (09:00)
[2022-02-22] MEDS ORDERED: MELOXICAM 7.5 MG TAB PO SCH (09:00)
[2022-02-22 09:46] LABS: Basophils # (A) 0.01 X 10*3/uL (0.00-0.10); Basophils % (A) 0.1 %; Eosinophils # (A) 0.05 X 10*3/uL (0.04-0.35); Eosinophils % (A) 0.4 %; HCT 38.1 % (39.6-50.0); HGB 12.5 g/dL (13.0-17.0); Immature Grans, Automated 0.5 %; Lymphocytes # (A) 0.69 X 10*3/uL (0.90-5.00); Lymphocytes % (A) 4.8 %; MCH 30.4 pg (27.0-32.0); MCHC 32.8 g/dL (32.0-37.0); MCV 92.7 fL (80.0-97.0); Mean Platelet Volume 9.3 fL (9.5-12.2); Monocytes % (A) 7.7 %; NRBC Per 100 WBC 0 /100 WBCS (0.0-0.0); Neutrophils # (A) 12.31 X 10*3/uL (1.80-7.70); Neutrophils % (A) 86.5 %; Platelet Count 214 X 10*3/uL (140-440); RBC 4.11 X 10*6/uL (4.40-5.60); RDW 12.5 % (11.5-14.5); WBC 14.23 X 10*3/uL (4.50-10.00)
[2022-02-22] MEDS: LACTATED RINGERS 1,000 ML IV SCH ×2 (11:00)
[2022-02-22] MEDS ORDERED: TAMSULOSIN 0.4 MG CAP.ER.24H PO SCH (21:00)
== END 2022-02-22 11:40 | disposition home health service (06) ==
LOC: OR 13:34 → 4SSUR 18:26 → OR 02-22 11:40
PROVIDERS: ATTEND Orthopaedic Surgery
DX: M17.11 Unilateral primary osteoarthritis, right knee (principal); G89.18 Other acute postprocedural pain; E11.9 Type 2 diabetes mellitus without complications; E78.5 Hyperlipidemia, unspecified; K30 Functional dyspepsia; R26.9 Unspecified abnormalities of gait and mobility; F10.90 Alcohol use, unspecified, uncomplicated; Z98.890 Other specified postprocedural states; Z98.49 Cataract extraction status, unspecified eye; Z79.899 Other long term (current) drug therapy; Z79.84 Long term (current) use of oral hypoglycemic drugs
CPT/HCPCS: 97162; 85025; 73560; 27447; 64999; 64447; J2250; J0171; J1100; J0690 ×2; J2405; J1885 ×2; J2795; J0735; 64445; 76942

== ENCOUNTER 2023-08-17 12:20 | Emergency (ER) | payer MEDICARE ==
[2023-08-17 13:29] VITALS: RESP 18; TEMP 98.6
[2023-08-17] MEDS: DIPH,PERTUS(ACELL)TETVAC-LF 0.5 ML VIAL IM ONE (13:40)
--- NOTE | 2023-08-17 14:16 | ED ---
Wound/Laceration HPI - General Chief Complaint: Wound/Laceration Stated Complaint: L Finger Injury Time Seen by Provider: 08/17/23 12:40 Source: patient, RN notes reviewed Mode of arrival: ambulatory Limitations: no limitations - History of Present Illness Initial Comments: 73-year-old male on aspirin presenting with left finger laceration x 2 hours ago . Patient was using a table saw when it slipped and cut his left pointer finger. Denies blunt trauma to the site. Denies numbness or tingling. Denies anticoagulation. Last tetanus was about 10 years ago. - Related Data Home Medications Medication Instructions Recorded Confirmed Aspirin [Adult Low Dose Aspirin EC] 81 mg PO DAILY 02/12/18 02/17/22 Esomeprazole Magnesium [NexIUM] 40 mg PO QAM 02/12/18 02/21/22 Fluticasone Nasal [place] [Flonase 1 spray EA NOSTRIL DAILY 02/12/18 02/21/22 Nasal [place]] Tamsulosin HCl [Flomax] 0.4 mg PO HS 02/12/18 02/21/22 guaiFENesin [Mucinex] 600 mg PO Q12HR 02/12/18 02/21/22 Albuterol Inhaler [Ventolin Hfa 1 - 2 puff INHALATION Q6H PRN 02/17/22 02/21/22 Inhaler] Albuterol Nebulized [Ventolin 2.5 mg INHALATION Q6H PRN 02/17/22 02/17/22 Nebulized] Docusate [Colace] 3 tab PO HS 02/17/22 02/21/22 Dulaglutide [Trulicity] 1.5 mg SQ TH 02/17/22 02/21/22 Furosemide [Lasix] 20 mg PO DAILY 02/17/22 02/21/22 Meloxicam [Mobic] 15 mg PO DAILY 02/17/22 02/21/22 Metoprolol Succinate (ER) [Toprol 25 mg PO DAILY 02/17/22 02/21/22 Xl] Montelukast [Singulair] 10 mg PO DAILY 02/17/22 02/21/22 Naproxen Sodium [Aleve] 220 mg PO BID PRN 02/17/22 02/21/22 Potassium Chloride ER [K-Dur 10] 10 meq PO DAILY 02/17/22 02/21/22 Pregabalin [Lyrica] 150 mg PO BID 02/17/22 02/21/22 Cholecalciferol [Vitamin D3 (125 125 mcg PO DAILY 02/20/22 02/21/22 Mcg = 5000 Iu)] Previous Rx's Medication Instructions Recorded Aspirin 81 mg PO BID 30 Days #60 tab 02/21/22 Diclofenac Sodium [Voltaren] 75 mg PO BID 30 Days #60 tab 02/21/22 Docusate [Colace] 100 mg PO BID #60 capsule 02/21/22 HYDROcodone/APAP 5-325MG [[place] 1 - 2 tab PO Q6HR PRN 7 Days #32 02/21/22 5-325] tab Omeprazole 40 mg PO DAILY 30 Days #30 cap 02/21/22 Allergies Allergy/AdvReac Type Severity Reaction Status Date / Time No Known Allergies Allergy Verified 02/21/22 13:56 Review of Systems ROS Statement: Those systems with pertinent positive or pertinent negative responses have been documented in the HPI. ROS Other: All systems not noted in ROS Statement are negative. Past Medical History Past Medical History: Asthma, COPD, Diabetes Mellitus, GERD/Reflux, Hypertension, Osteoarthritis (OA) Additional Past Medical History / Comment(s): RLS History of Any Multi-Drug Resistant Organisms: None Reported Past Surgical History: Cholecystectomy, Hernia Repair, Orthopedic Surgery, Tonsillectomy Additional Past Surgical History / Comment(s): EGD, COLONOSCOPY, hernia repair x2, left foot reconstruction Past Anesthesia/Blood Transfusion Reactions: Previous Problems w/ Anesthesia Additional Past Anesthesia/Blood Transfusion Reaction / Comment(s): very slow to wake up after foot surg. Past Psychological History: Depression Smoking Status: Never smoker Past Alcohol Use History: Occasional Past Drug Use History: None Reported - Past Family History Mother Family Medical History: Congestive Heart Failure (CHF) Father Family Medical History: Dementia General Exam Limitations: no limitations General appearance: alert, in no apparent distress Head exam: Present: atraumatic, normocephalic, normal inspection Respiratory exam: Present: normal lung sounds bilaterally. Absent: respiratory distress, wheezes, rales, rhonchi, stridor Cardiovascular Exam: Present: regular rate, normal rhythm, normal heart sounds. Absent: systolic murmur, diastolic murmur, rubs, gallop, clicks Left Forearm Wrist exam: Present: normal inspection, full ROM. Absent: tenderness, swelling Hand Wrist exam: Present: full ROM, abrasion (2 cm abrasion present on third digit of left hand. No active bleeding.), laceration (3 cm superficial horizontal laceration on distal, dorsal aspect of left second digit. No active bleeding. Full sensation and cap refill less than 2 seconds. Full range of motion of DIP and PIP.). Absent: tenderness, swelling Vascular: Present: normal capillary refill. Absent: vascular compromise Neurological exam: Present: alert, oriented X3 Psychiatric exam: Present: normal affect, normal mood Skin exam: Present: warm, dry, intact, normal color. Absent: rash Course Vital Signs 08/17/23 12:44 Temperature 98.6 F Pulse Rate 69 Respiratory 18 Rate Blood Pressure 143/74 O2 Sat by Pulse 98 Oximetry Procedures - Laceration Laceration #1 Consent Obtained: verbal consent Indication: laceration Site: hand Description: linear Depth: simple, single layer Pre-repair: wound explored, irrigated extensively, deep structures intact Patient Tolerated Procedure: well Additional Comments: Sutures not indicated at this time due to laceration is very superficial. Site was cleaned, skin adhesive and Steri-Strips applied. Wound dressed. Neurovascularly intact status post procedure. Medical Decision Making - Medical Decision Making Was pt. sent in by a medical professional or institution (, PA, DISPENSING OPTICIAN APPRENTICE, urgent care, hospital, or group home...) When possible be specific @ -No Did you speak to anyone other than the patient for history (EMS, parent, family, police, friend...)? What history was obtained from this source @ -Patient's supplemented history Did you review nursing and triage notes (agree or disagree)? Why? @ -I reviewed and agree with nursing and triage notes Were old charts reviewed (outside hosp., previous admission, EMS record, old EKG, old radiological studies, urgent care reports/EKG's, group home records)? Report findings @ -No old charts were reviewed Differential Diagnosis (chest pain, altered mental status, abdominal pain women, abdominal pain men, vaginal bleeding, weakness, fever, dyspnea, syncope, headache, dizziness, GI bleed, back pain, seizure, CVA, palpatations, mental health, musculoskeletal)? @ -Differential Musculoskeletal Laceration, muscular strain, contusion, ligament sprain, fracture, arthritis, septic arthritis, bursitis, cellulitis, .... This is not meant to be in all inclusive list EKG interpreted by me (3pts min.). @ -None X-rays interpreted by me (1pt min.). @ -None done CT interpreted by me (1pt min.). @ -None done U/S interpreted by me (1pt. min.). @ -None done What testing was considered but not performed or refused? (CT, X-rays, U/S, labs)? Why? @ -X-ray not indicated at this time due to no blunt trauma What meds were considered but not given or refused? Why? @ -None Did you discuss the management of the patient with other professionals (p rofessionals i.e. , PA, DISPENSING OPTICIAN APPRENTICE, lab, RT, psych nurse, social sciences research scientist, library helper, teacher, emergency communications officer, case management specialist)? Give summary @ -No Was smoking cessation discussed for >3mins.? @ -No Was critical care preformed (if so, how long)? @ -No Were there social determinants of health that impacted care today? How? (Homelessness, low income, unemployed, alcoholism, drug addiction, transportation, low edu. Level, literacy, decrease access to med. care, intermediate, rehab)? @ -No Was there de-escalation of care discussed even if they declined (Discuss DNR or withdrawal of care, Hospice)? DNR status @ -No What co-morbidities impacted this encounter? (DM, HTN, Smoking, COPD, CAD, Cancer, CVA, ARF, Chemo, Hep., AIDS, mental health diagnosis, sleep apnea, morbid obesity)? @ -None Was patient admitted / discharged? Hospital course, mention meds given and route, prescriptions, significant lab abnormalities, going to OR and other pertinent info. @ -Patient was discharged. Patient was seen and evaluated for laceration of second digit of left hand. Tetanus was updated. Skin adhesive and Steri-Strips applied due to superficial nature of wound. Neurovascularly intact. Wound care discussed with patient in detail and patient shows understanding and agrees to plan. Patient discharged in stable condition. Case discussed with Dr. Dougherty. Undiagnosed new problem with uncertain prognosis? @ -No Drug Therapy requiring intensive monitoring for toxicity (Heparin, Nitro, Insulin, Cardizem)? @ -No Were any procedures done? @ -Wound clean, skin adhesive and Steri-Strips applied, and wound dressed Diagnosis/symptom? @ -Laceration of the second digit of left hand Acute, or Chronic, or Acute on Chronic? @ -Acute Uncomplicated (without systemic symptoms) or Complicated (systemic symptoms)? @ -Uncomplicated Side effects of treatment? @ -No Exacerbation, Progression, or Severe Exacerbation? @ -No Poses a threat to life or bodily function? How? (Chest pain, [place], OR, pneumonia, PE, COPD, DKA, ARF, appy, cholecystitis, CVA, Diverticulitis, Homicidal, Suicidal, threat to staff... and all critical care pts) @ -No Disposition Clinical Impression: Laceration of finger of left hand Disposition: HOME SELF-CARE Condition: Stable Instructions (If sedation given, give patient instructions): Finger Laceration (ED) Additional Instructions: Please return to the Emergency Department if symptoms worsen or any other concerns. Is patient prescribed a controlled substance at d/c from ED?: No Referrals: Giovany Baker MD [Primary Care Provider] - 1-2 days Time of Disposition: 14:16
[2023-08-17 15:03] VITALS: BP 125/64; PULSE 56
== END 2023-08-17 14:26 | disposition home or self-care (01) ==
LOC: EC 12:20
DX: S61.211A Laceration without foreign body of left index finger without damage to nail, initial encounter (principal); Z23 Encounter for immunization; Z90.49 Acquired absence of other specified parts of digestive tract; W31.2XXA Contact with powered woodworking and forming machines, initial encounter
CPT/HCPCS: 12001; 90471; 90715; 99283

== ENCOUNTER → 2024-02-15 | Outpatient (CLI) | payer MEDICARE ==
[2024-02-15 16:10] LABS: Anisocytosis (M) 2+; Basophils # (A) 0 X 10*3/uL (0.00-0.10); Basophils % (A) 0 %; Elliptocytes 2+; Eosinophils # (A) 0.02 X 10*3/uL (0.04-0.35); Eosinophils % (A) 0.8 %; HCT 30.7 % (39.6-50.0); HGB 8.3 g/dL (13.0-17.0); Hypochromasia (M) 2+; Immature Grans, Automated 0 %; Immature Platelet Fraction 36.3 % (1.1-6.1); Lymphocytes # (A) 1.88 X 10*3/uL (0.90-5.00); Lymphocytes % (A) 73.4 %; MCH 21.2 pg (27.0-32.0); MCV 78.5 FL (80.0-97.0); Macrocytosis (M) 2+; Microcytosis (M) 2+; Monocytes # (A) 0.14 X 10*3/uL (0.20-1.00); Monocytes % (A) 5.5 %; NRBC Per 100 WBC 0.04 X 10*3/uL (0.00-0.01); Neutrophils # (A) 0.52 X 10*3/uL (1.80-7.70); Neutrophils % (A) 20.3 %; Platelet Count 35 X 10*3/uL (140-440); RBC 3.91 X 10*6/uL (4.40-5.60); Schistocytes 1+; WBC 2.56 X 10*3/uL (4.50-10.00)
== END | disposition home or self-care (01) ==
LOC: LABWHC1 12:27
PROVIDERS: ATTEND Family Medicine
DX: B89 Unspecified parasitic disease (principal)
CPT/HCPCS: 36415; 85025

== ENCOUNTER → 2024-03-01 | Outpatient (CLI) | payer MEDICARE ==
--- NOTE | 2024-03-01 10:45 | CT ---
EXAMINATION TYPE: CT chest wo con CT DLP: 437.7 mGycm, Automated exposure control for dose reduction was used. DATE OF EXAM: 03/01/2024 10:37 AM COMPARISON: Chest radiograph 02/09/2018 CLINICAL INDICATION:Male, 73 years old with history of R07.9 CHEST PAIN; PHH, CONGESTION TECHNIQUE: Multiple axial images were obtained through the chest without IV contrast. Lack of IV or o ral contrast limits evaluation of solid and hollow organ viscera. . Coronal and sagittal reformats re viewed. FINDINGS: LUNGS/ PLEURA: No pleural effusion, pneumothorax, or focal subsegmental consolidation. No suspicious pulmonary nodule or mass. No evidence for interstitial lung disease. Minimal biapical thickening. AIRWAY: Patent and unremarkable.. HEART: Size within normal limits.No pericardial effusion. MEDIASTINUM: No gross evidence of adenopathy. VASCULATURE: No aortic aneurysm. MUSCULOSKELETAL: No acute osseous abnormalities. Increased upper thoracic spine kyphosis. SOFT TISSUES/LYMPH NODES: Bilateral gynecomastia. LOWER NECK: No significant findings. UPPER ABDOMEN: Gallbladder is surgically absent. Colonic diverticulosis without visualized acute dive rticulitis. IMPRESSION: No acute thoracic process. [facility], , 03/01/2024 10:43 AM
== END | disposition home or self-care (01) ==
LOC: RADCTMAIN 10:22
PROVIDERS: ATTEND Family Medicine
DX: R07.9 Chest pain, unspecified (principal)
CPT/HCPCS: 71250

== ENCOUNTER → 2024-03-17 | Outpatient (CLI) | payer MEDICARE ==
[2024-03-17 13:44] LABS: Anisocytosis Marked; Basophils % (A) 1 %; Eosinophils % (A) 0 %; HGB 8.5 gm/dL (13.0-17.5); Hypochromasia Marked; Lymphocytes # (A) 1.3 k/uL (1.0-4.8); Lymphocytes % (A) 75 %; MCH 21.2 pg (25.0-35.0); MCHC 28.2 g/dL (31.0-37.0); MCV 75.4 fL (80.0-100.0); Mean Platelet Volume 8.5; Microcytosis Marked; Monocytes # (A) 0.1 k/uL (0-1.0); Monocytes % (A) 3 %; Neutrophils # (A) 0.3 k/uL (1.3-7.7); Neutrophils % (A) 18 %; Poikilocytosis Moderate; RBC 3.98 m/uL (4.30-5.90); RDW 24.5 % (11.5-15.5); WBC 1.8 k/uL (3.8-10.6)
[2024-03-17 14:54] LABS: Platelet Count 33 k/uL (150-450)
[2024-03-17 14:55] LABS: RBC Fragments Present
== END | disposition home or self-care (01) ==
LOC: LABWHC1 13:21
PROVIDERS: ATTEND Family Medicine
DX: D69.6 Thrombocytopenia, unspecified (principal)
CPT/HCPCS: 36415; 85025

== ENCOUNTER → 2024-03-28 | Outpatient (CLI) | payer MEDICARE ==
[2024-03-28 12:15] LABS: Anisocytosis Marked; HCT 30.2 % (39.0-53.0); HGB 8.5 gm/dL (13.0-17.5); Hypochromasia Marked; Mean Platelet Volume 9.5; Microcytosis Marked; Poikilocytosis Moderate; RBC 4.03 m/uL (4.30-5.90); RDW 24.4 % (11.5-15.5); WBC 1.8 k/uL (3.8-10.6)
[2024-03-28 12:24] LABS: Platelet Count 39 k/uL (150-450)
[2024-03-28 12:34] LABS: Lymphocytes # (M) 1.08 k/uL (1.0-4.8); Monocytes # (M) 0.09 k/uL (0-1.0); Neutrophils # (M) 0.63 k/uL (1.3-7.7); Neutrophils % (M) 35 %; Nucleated Red Blood Cells 0 /100 WBC (0-0); Total Cells Counted 100
== END | disposition home or self-care (01) ==
LOC: LABWHC1 11:38
PROVIDERS: ATTEND Family Medicine
DX: D64.9 Anemia, unspecified (principal); R60.9 Edema, unspecified
CPT/HCPCS: 36415; 85025

== ENCOUNTER → 2024-04-08 | Outpatient (CLI) | payer MEDICARE ==
[2024-04-08 16:20] LABS: Anisocytosis (M) 2+ (None Seen); Basophils # (A) 0 X 10*3/uL (0.00-0.10); Basophils % (A) 0 %; Elliptocytes 2+ (None Seen); Eosinophils # (A) 0 X 10*3/uL (0.04-0.35); Eosinophils % (A) 0 %; HCT 30.5 % (39.6-50.0); HGB 8.2 g/dL (13.0-17.0); Hypochromasia (M) 2+ (None Seen); Immature Grans, Automated 0 %; Immature Platelet Fraction 33.9 % (1.1-6.1); Lymphocytes # (A) 1.53 X 10*3/uL (0.90-5.00); Lymphocytes % (A) 81.8 %; MCH 20.8 pg (27.0-32.0); MCHC 26.9 g/dL (32.0-37.0); MCV 77.2 FL (80.0-97.0); Microcytosis (M) 3+ (None Seen); Monocytes # (A) 0.08 X 10*3/uL (0.20-1.00); Monocytes % (A) 4.3 %; NRBC Per 100 WBC 0.08 X 10*3/uL (0.00-0.01); Neutrophils # (A) 0.26 X 10*3/uL (1.80-7.70); Neutrophils % (A) 13.9 %; Platelet Count 33 X 10*3/uL (140-440); RBC 3.95 X 10*6/uL (4.40-5.60); RDW 26.5 % (11.5-14.5); Schistocytes 2+ (None Seen); WBC 1.87 X 10*3/uL (4.50-10.00)
== END | disposition home or self-care (01) ==
LOC: LABWHC1 11:28
PROVIDERS: ATTEND Family Medicine
DX: D64.9 Anemia, unspecified (principal)
CPT/HCPCS: 36415; 85025

== ENCOUNTER → 2024-04-14 | Outpatient (CLI) | payer MEDICARE ==
[2024-04-14 11:44] LABS: Anisocytosis Marked; Basophils % (A) 1 %; Eosinophils % (A) 0 %; HCT 28.8 % (39.0-53.0); HGB 8.1 gm/dL (13.0-17.5); Hypochromasia Marked; Lymphocytes # (A) 1.5 k/uL (1.0-4.8); Lymphocytes % (A) 81 %; MCHC 28.1 g/dL (31.0-37.0); MCV 74.9 fL (80.0-100.0); Mean Platelet Volume 9.3; Microcytosis Marked; Monocytes % (A) 2 %; Neutrophils % (A) 13 %; Poikilocytosis Moderate; RBC 3.84 m/uL (4.30-5.90); RDW 24.5 % (11.5-15.5); WBC 1.8 k/uL (3.8-10.6)
[2024-04-14 11:59] LABS: Platelet Count 32 k/uL (150-450)
[2024-04-14 12:37] LABS: Ovalocytes Present; RBC Fragments Present
[2024-04-14 12:38] LABS: Spherocytes Present; Tear Drop Cells Present
[2024-04-14 13:20] LABS: Neutrophils # (A) 0.2 k/uL (1.3-7.7)
== END | disposition home or self-care (01) ==
LOC: LABWHC1 11:01
PROVIDERS: ATTEND Family Medicine
DX: D64.9 Anemia, unspecified (principal)
CPT/HCPCS: 36415; 85025

== ENCOUNTER → 2024-04-26 | Day surgery (SDC) | payer MEDICARE ==
[2024-04-25 14:55] VITALS: BMI 29.7
[~2024-04-26] MED LIST changes: -ACETAMINOPHEN TAB 500 MG TAB PO PRN; -DEXAMETHASONE SOD PHOSPHATE 10 MG/ML 1 ML VIAL IV PRN; -DOCUSATE 100 MG CAP PO PRN; -FAMOTIDINE 20 MG/2 ML VIAL IVP PRN; -HYDROmorphone 0.5 MG/0.5 ML SYRINGE IVP PRN; -KETOROLAC 15 MG/ML 1 ML VIAL IVP PRN; +LACTATED RINGERS 1,000 ML IV SCH; -MIDAZOLAM 2 MG/2 ML VIAL IV PRN; -ONDANSETRON 4 MG/2 ML VIAL IVP PRN; +PROPOFOL 10 MG/ML 20 ML VIAL IV ONE; -ROPIVACAINE 246.25 MG, EPINEPHrine 0.5 MG, KETOROLAC (30 mg/mL) 30 MG, cloNIDine HCL/PF... MISCELLANE PRN; -TRANEXAMIC ACID IN NACL,ISO-OS 1,000 MG in SALINE 1 100ML.BAG IVPB PRN; -oxyCODONE ER 10 MG TAB.ER.12H PO PRN
[2024-04-26 12:13] VITALS: TEMP 99.9
[2024-04-26] MEDS: IV FLUID CONTINUATION 1,000 ML IV ONE (12:21)
--- NOTE | 2024-04-26 13:42 | P.PCN ---
Date of Procedure: 04/26/24 Preoperative Diagnosis: Pancytopenia Postoperative Diagnosis: Same Procedure(s) Performed: Bone marrow aspiration biopsy Anesthesia: MAC Surgeon: Sandro Banks [place] [employer] Picker #1: Stated None Estimated Blood Loss (ml): 2 Pathology: other Condition: stable Disposition: same day Indications for Procedure: New onset pancytopenia. Negative clinical workup Operative Findings: Adequate sample Description of Procedure: The procedure was discussed in detail with the patient and his in the office. He presented to the outpatient endoscopy suite, where informed consent and IV access were obtained. He was then placed in the left lateral decubitus position. The area over both posterior iliac crest was cleaned and prepped with chlorhexidine and sterile draping. IV sedation was then initiated. Local anesthesia was administered with lidocaine to the right posterior iliac crest. Jamshidi needle was then inserted via a skin incision, with bone marrow aspirate and biopsy subsequently being obtained. On withdrawal of the needle hemostasis was overall easily achieved, although oozing was somewhat more prolonged than usual likely due to his low platelets. Blood loss was minimal and recovery from sedation was satisfactory. He appeared to have tolerated the procedure well without any obvious, immediate complications.
[2024-04-26 13:57] VITALS: RESP 16
[2024-04-26 14:27] VITALS: BP 131/67; PULSE 87
[2024-04-26 14:36] LABS: Anisocytosis Marked; HGB 7.6 gm/dL (13.0-17.5); Hypochromasia Marked; MCH 20.9 pg (25.0-35.0); MCHC 29.1 g/dL (31.0-37.0); Mean Platelet Volume 9.5; Microcytosis Marked; Poikilocytosis Marked; RBC 3.61 m/uL (4.30-5.90); RDW 24.7 % (11.5-15.5); Reticulocyte % 1.8 % (0.5-2.0)
[2024-04-26 14:39] LABS: Platelet Count 38 k/uL (150-450)
[2024-04-26 15:06] LABS: Neutrophils % (M) 20 %
[2024-04-26 15:07] LABS: Monocytes # (M) 0.06 k/uL (0-1.0); Nucleated Red Blood Cells 1 /100 WBC (0-0); Total Cells Counted 100
[2024-04-26 15:17] LABS: Neutrophils # (M) 0.24 k/uL (1.3-7.7); WBC 1.2 k/uL (3.8-10.6)
[2024-04-26 15:18] LABS: RBC Fragments Present
[2024-04-26 15:19] LABS: Tear Drop Cells Present
== END | disposition home or self-care (01) ==
LOC: OR 11:29
PROVIDERS: ATTEND Internal Medicine Hematology & Oncology
DX: C94.6 Myelodysplastic disease, not elsewhere classified (principal); D61.818 Other pancytopenia; D53.8 Other specified nutritional anemias; J45.998 Other asthma; R06.02 Shortness of breath; I10 Essential (primary) hypertension
CPT/HCPCS: 85025; 85045; 38222; J2704